=== PATIENT | male | born 1955 | race Caucasian/White ===

== ENCOUNTER → 2017-12-10 16:01 | Outpatient (CLI) | payer BC, SELFPAY ==
--- NOTE | 2017-12-10 16:04 | US_ITS ---
STUDY: SCROTUM ULTRASOUND REASON FOR EXAM: Male, 62 years old. Spermatocele. TECHNIQUE: Ultrasound evaluation of the scrotum was performed with color Doppler and static camacho-scale imaging. COMPARISON: None. FINDINGS: RIGHT TESTICLE INTRATESTICULAR: There is a normal size of the right testicle. The right testicle measures 4.4 x 4.2 x 2.5 cm. There is a homogenous echotexture. There is normal arterial and normal venous vascularity. There is no demonstrated right testicular mass or cyst. EXTRATESTICULAR: The epididymis is normal in size. The epididymis head measures 1.7 cm. There is normal vascularity of the epididymis. There is no demonstrated epididymal cystic structure. There is a small hydrocele. There is no demonstrated varicocele. There is no demonstrated extratesticular mass or cyst. LEFT TESTICLE INTRATESTICULAR: There is a normal size of the left testicle. The left testicle measures 4.5 x 3.9 x 2.4 cm. There is a homogenous echotexture. There is normal arterial and normal venous vascularity. There is no demonstrated left testicular mass or cyst. EXTRATESTICULAR: The epididymis is enlarged. The epididymis head measures 3.3 x 2.1 x 3.0 cm. There is normal vascularity of the epididymis. Several well-defined cystic structures are seen most likely large pneumatoceles as much as 2.1 cm. There is a large hydrocele with debris. There is no demonstrated varicocele. There is no demonstrated extratesticular mass or cyst. US/Testicular with Arterial Flow IMPRESSION: Normal bilateral testicles. No evidence for torsion. Enlarged epididymis. Several pneumatoceles as much as 2.1 cm. Large hydrocele with debris. Electronically Signed: Barry Torres MD at 9:56 EDT , Service support ,
== END ==
PROVIDERS: Family Provider Family Medicine; PCP Family Medicine; Visit Provider Urology
DX: N43.40 Spermatocele of epididymis, unspecified (principal)
CPT/HCPCS: 76870; 93976

== ENCOUNTER → 2018-01-01 16:45 | Outpatient (CLI) | payer BC, SELFPAY ==
--- NOTE | 2018-01-01 16:49 | CT_ITS ---
STUDY: CT ABDOMEN AND PELVIS WITHOUT CONTRAST REASON FOR EXAM: Male, 62 years old. Hematuria, right flank pain RADIATION DOSAGE (If Supplied By Facility): CTDIvol = ( 14.3 ) mGy, DLP = ( 712.18 ) mGycm TECHNIQUE: Transaxial images were obtained from the dome of the diaphragm to the symphysis pubis without oral contrast, and without intravenous contrast. Sagittal and coronal images were reconstructed. Individualized dose optimization techniques were used for this CT. COMPARISON: None. FINDINGS: The visualized lung bases are unremarkable. The visualized portions of the heart are within normal limits. Normal liver. The gallbladder is contracted. There is a small calcified stone in the gallbladder neck. Normal spleen. Normal pancreas. Normal bilateral adrenal glands. Normal right kidney. Normal left kidney. Normal visualized stomach. Normal small intestine. There is mild colonic diverticulosis with no associated diverticulitis. The appendix is not seen in accordance with history of appendectomy. There are calcified plaques of the abdominal aorta. Normal inferior vena cava. Normal retroperitoneum. Normal urinary bladder. Prostatic calcifications are present. The seminal vesicles and seminal vesicle angles appear normal. There is a small umbilical hernia containing fat. There appears to be a large left hydrocele. There is diffuse endplate spondylosis of the visualized thoracolumbar spine. CT/Abdomen/Pelvis without Cont IMPRESSION: 1. Calcified gallstones seen in the gallbladder neck. The gallbladder is contracted. 2. Mild colonic diverticulosis with no associated diverticulitis. 3. Small fat-containing umbilical hernia. 4. There appears to be a large left hydrocele. 5. There is no evidence of nephro or ureterolithiasis, hydronephrosis, or hydroureter. Electronically Signed: Seth Darden MD at 17:46 EDT , Service support ,
== END ==
PROVIDERS: Family Provider Family Medicine; PCP Family Medicine; Visit Provider Family Medicine
DX: M54.5 Low back pain (principal)
CPT/HCPCS: 74176

== ENCOUNTER → 2018-04-09 12:06 | Outpatient (CLI) | payer BC, SELFPAY | PROVIDERS: Family Provider Family Medicine; PCP Family Medicine; Visit Provider Nurse Practitioner Family | DX: R55 Syncope and collapse (principal); I48.2 Chronic atrial fibrillation | CPT/HCPCS: 93225; 93226 ==

== ENCOUNTER 2018-10-04 07:59 | Day surgery (SDC) | payer BC, SELFPAY ==
[2018-09-06 15:12] VITALS: BMI 26.9
[2018-10-03 07:27] VITALS: BMI 26.9
[2018-10-04 08:20] LABS: Hemoglobin 14.3 g/dl (13.0-16.5); Mean Corpuscular Hgb 29.5 pg (27.0-32.0); Mean Corpuscular Volume 86.6 fL (80-94); Mean Platelet Vol. 11.2 fl (6.2-12.0); Platelet Count 171 K/mm3 (150-450); RBC Distribution Width CV 13.2 % (11.6-14.6); RBC Distribution Width SD 40.8 fl (35.1-43.9); Red Blood Count 4.85 M/mm3 (4.6-6.2); White Blood Count 8.7 K/mm3 (4.4-11.0)
[2018-10-04 08:26] LABS: Prothrombin Time (Protime)PT. 13.2 SECONDS (11.7-14.9)
[2018-10-04 08:27] LABS: Anion Gap 6 (5-15); BUN 27 mg/dL (7-18); BUN/Creat Ratio 29.9 RATIO (10-20); Calcium,Total 8.6 mg/dL (8.5-10.1); Chloride 107 mmol/L (98-107); EST Glomerular Filtration Rate 90 mL/min (>60); Est Glom Filt Rate - Afr Amer 109 mL/min (>60); Estimated Creatinine Clearance 98.94 ml/min; Glucose 168 mg/dL (74-106); Partial Thromboplast Time 29.6 Seconds (24.1-36.2); Sodium Level 141 mmol/L (136-145)
[2018-10-04 08:43] LABS: Scan Indicated on CBC? Y/N NO
--- NOTE | 2018-10-04 10:41 | CL.D_ITS ---
Patient Name: TATYANA MCKENNA Study Date: 10/04/2018 Performing: Chris Hernandez MD Ht: 74.01 inches 188 cm : 1955 Wt: 209.44 lbs 95 kg Age: 62 Gender: male BSA: 2.22 PROCEDURE(S) PERFORMED PR43-HVR/COR/LV CLINICAL PROFILE AND INDICATIONS Indications: Cardiac Arrythmia Heart Failure: None Stress/Imaging Stress/Image Study Performed: No Angina Classification Anginal Classification w/in 2 Weeks: No symptoms CAD Presentations: No Sxs, no angina. CONCLUSIONS Normal Left Ventricular End Diastolic Pressure Normal LV size, wall motion,and systolic function LVEF: by LV gram 55 % Single vessel CAD of the RCA (mild luminal irregularities) RECOMMENDATIONS Risk factor modification Medical therapy DESCRIPTION OF PROCEDURE The patient arrived to the procedure lab. The risks and benefits of the procedure as well as a full d escription of our services here and current unavailability of surgical backup were fully explained to the patient and/or their significant other prior to the catheterization. The Timeout was completed, verifying the correct patient and procedure. The patient's procedural site was prepped and draped in the usual fashion. Local anesthetic was given subcutaneously to right groin region with Lidocaine 2%. Using a modified Seldinger technique, arterial access was obtained via the right femoral artery, a 4 Fr sheath was inserted Left Coronary Artery selective angiography was performed in multiple views us ing a 4 Fr. JL4 catheter. Right Coronary Artery selective angiography was then performed in multiple views using a 4 Fr. 3DRC catheter. Left Ventriculography was performed in HOFF projection using a 4 Fr . Pigtail catheter. LV to AO pullback pressures were then recorded.The arterial sheath was pulled and manual compression applied until hemostasis is achieved. CORONARY ANGIOGRAPHY DOMINANCE: Co- Dominant LEFT HEART ASSESSMENT Left Ventricular Ejection Fraction: by LV Gram 55 % Normal LV wall motion Normal Left Ventricular End Diastolic Pressure LVEDP: 13 mmHg LEFT MAIN: Angiographically normal LEFT ANTERIOR DECENDING ARTERY: Angiographically normal CIRCUMFLEX ARTERY: Angiographically normal RIGHT CORONARY ARTERY: MID RCA: Mild luminal irregularities VALVE FINDINGS: Normal Aortic Valve function Normal Mitral Valve function AORTIC ROOT: Angiographically normal COMPLICATIONS No Complications PROCEDURE MEDICATIONS Versed 1 mg IV Versed 1 mg IV Oxygen: 2 L/min via nasal cannula SUMMARY OF HEMODYNAMIC DATA Time AIR REST ECG 08:34:49 AO 184/91 (128) SA 10:07:07 LV 178/2, 13 10:13:24 LV 176/0, 13 10:13:30 LV 169/1, 18 10:14:37 LV 152/1, 12 10:14:44 LVp 178/0, 15 10:14:53 AOp 180/88 (129) 10:14:58 Signed By Chris Hernandez MD On 10/04/2018 10:40:43 Chris Hernandez MD
== END 2018-10-04 14:35 | disposition home or self-care (01) ==
LOC: CLSP 08:02
PROVIDERS: Nurse Practitioner Family; Family Provider Family Medicine; PCP Family Medicine; Referring Provider Internal Medicine Cardiovascular Disease; Visit Provider Internal Medicine Cardiovascular Disease
DX: I49.9 Cardiac arrhythmia, unspecified (principal); I48.0 Paroxysmal atrial fibrillation; I10 Essential (primary) hypertension; E78.5 Hyperlipidemia, unspecified; E11.9 Type 2 diabetes mellitus without complications; Z79.82 Long term (current) use of aspirin; Z79.84 Long term (current) use of oral hypoglycemic drugs; Z79.899 Other long term (current) drug therapy; E66.3 Overweight; Z68.26 Body mass index [BMI] 26.0-26.9, adult
CPT/HCPCS: 36415; 80048; 85027; 85610; 85730; 93458; 99152; 99153; J7040; Q9967; C1894

== ENCOUNTER 2019-06-25 07:02 | Emergency (ER) | payer BC, SELFPAY ==
[2019-01-24 16:01] VITALS: BMI 26.9
[2019-06-25 07:03] VITALS: BP 136/98; PULSE 66; RESP 25; TEMP 36.6; O2SAT 100; BMI 27.2
[2019-06-25 07:11] VITALS: BP 136/98; PULSE 66; RESP 25; TEMP 36.6; O2SAT 100
--- NOTE | 2019-06-25 07:35 | EKG12_ITS ---
Test Reason : GEN ILLNESS Blood Pressure : / mmHG Vent. Rate : 067 BPM Atrial Rate : 394 BPM P-R Int : 000 ms QRS Dur : 094 ms QT Int : 418 ms P-R-T Axes : 000 -15 040 degrees QTc Int : 441 ms Atrial fibrillation with premature ventricular or aberrantly conducted complexes Anteroseptal infarct (cited on or before 02-JAN-2017) Abnormal ECG Confirmed by MADHAVI NEELY, JAROCHO ([id number]), editor managing newspaper [employer] ([id number]) on 07/01/2019 10:31:14 AM Referred By: OZ Confirmed By:ALOK HENDRICKSON MD
--- NOTE | 2019-06-25 07:35 | RAD_ITS ---
STUDY: X-RAY CHEST REASON FOR EXAM: Male, 63 years old. Dizziness nausea and cough. TECHNIQUE: Single AP portable view of the chest. COMPARISON: Comparison is made with prior study dated March 06, 2017. FINDINGS: EKG electrodes are seen. The lungs are clear and expanded. There is no demonstrated pleural abnormality. There is mild cardiac enlargement. Normal mediastinum and opal. Normal visualized pulmonary arteries. There is atherosclerotic tortuosity of the aortic arch and descending thoracic aorta. There are diffuse degenerative changes of the visualized thoracic spine. Normal visualized ribs, clavicles, and shoulders. There is no demonstrated abnormality of the visualized soft tissue structures of the upper abdomen. RAD/Chest 1 View (Portable) IMPRESSION: Mild cardiomegaly. Electronically Signed: Armando Cope, at 8:30 EDT , Service support ,
--- NOTE | 2019-06-25 07:35 | CT_ITS ---
STUDY: CT BRAIN WITHOUT CONTRAST REASON FOR EXAM: Male, 63 years old. Dizziness. RADIATION DOSAGE (If Supplied By Facility): CTDIvol = ( 60.81 ) mGy, DLP = ( 1067.08 ) mGycm TECHNIQUE: Transaxial CT imaging of the brain was performed without administration of intravenous contrast material. Individualized dose optimization techniques were used for this CT. COMPARISON: Comparison is made with prior study dated March 06, 2017. FINDINGS: Normal soft tissue structures. Normal calvarium. There is mild cerebral atrophy with widening of the extra-axial spaces and ventricular dilatation. Normal white matter tracts of the cerebral hemispheres. Normal basal ganglia and thalami. Normal brainstem. Normal cerebellum. There is no intracranial hemorrhage. There are no findings of an acute ischemic infarction. Atherosclerotic calcification of the vertebral arteries and cavernous portions of the internal carotid arteries bilaterally. Normal visualized paranasal sinuses. CT/Brain/Head without Contrast IMPRESSION: Chronic involutional changes of the brain. Electronically Signed: Armando Cope, at 8:17 EDT , Service support ,
[2019-06-25 07:48] VITALS: BP 134/83; BP 144/97; BP 152/95; PULSE 62; PULSE 72
[2019-06-25 07:50] LABS: Absolute Lymphocyte Count 1.87 X10^3/uL (0.83-4.51); Absolute Neutrophil Count 6.9 X10^3/uL (2.0-7.7); Basophil# 0.06 X10^3/uL; Basophil% 0.6 % (0-1); Eosinophil# 0.27 X10^3/uL; Eosinophils% 2.8 % (0-5); Hematocrit 42.1 % (40-54); Hemoglobin 14.3 g/dL (13.0-16.5); Lymphocyte # 1.87 X10^3/ul (4.0); Lymphocyte % 19.1 % (19-41); Mean Corpuscular Hgb 29.4 pg (27.0-32.0); Mean Corpuscular Volume 86.4 fL (80-94); Mean Platelet Vol. 11.7 fl (6.2-12.0); Monocyte# 0.64 X10^3/uL; Monocyte% 6.5 % (0-10); NRBC Flagged by Analyzer 0 % (0-5); Neutrophil % 70.6 % (47-70); Platelet Count 160 K/mm3 (150-450); RBC Distribution Width CV 12.5 % (11.6-14.6); RBC Distribution Width SD 39.3 fl (35.1-43.9); Red Blood Count 4.87 M/mm3 (4.6-6.2); White Blood Count 9.8 K/mm3 (4.4-11.0)
[2019-06-25 08:03] LABS: Anion Gap 10 (5-15); BUN 27 mg/dL (7-18); BUN/Creat Ratio 29.7 RATIO (10-20); Calcium,Total 8.9 mg/dL (8.5-10.1); Chloride 106 mmol/L (98-107); Creatinine, Serum 0.91 mg/dL (0.70-1.30); EST Glomerular Filtration Rate 89 mL/min (>60); Est Glom Filt Rate - Afr Amer 108 mL/min (>60); Glucose 242 mg/dL (74-106); Potassium 3.8 mmol/L (3.5-5.1); Sodium Level 143 mmol/L (136-145)
[2019-06-25] MEDS: Meclizine HCl 25 MG Tablet PO (08:14)
[2019-06-25] MEDS: 0.9% Normal Saline 1,000 ML 150 ML IV (08:15)
--- NOTE | 2019-06-25 09:38 | ED.VISSUMM ---
- ER Visit Summary Date of Service: 06/25/19 Chief Complaint: [Dizzy] History of Present Illness: The patient is a 63 M [resents to the emergency department complaint feeling dizzy this morning after waking. Patient try to turn his alarm clock off when he awoke and felt that he was woozy and feeling off balance. Patient also felt sweaty and diaphoretic with it. Dizziness is worse with head movement and trying to stand and walk. He has had headaches off and on. Denies any falls or head injuries. Denies recent illness. Patient was nauseated this morning. Patient also described and non-described discomfort in his left lower chest off and on for weeks that he notices more when he is at rest. The discomfort is not exertional and typically does not feel he while he is working as patient does work as a project construction manager. He denies recent travel or surgery. Patient is currently on apixaban for history of A. fib. Patient tells me he had a heart catheterization in September that was normal.] Physical Examination: [HEENT-PERRLA, EOMI. Cranial nerves II through XII grossly intact. TMs clear. Mucous membranes moist. No adenopathy. Cardiovascular-regular rate and rhythm without murmur or ectopy Lungs-clear to auscultation, chest wall stable without crepitus or subcu emphysema Abdomen-normoactive bowel sounds, soft, nontender, no rebound or rigidity, no peritoneal signs. Neuro [id number] and heel valdez testing within normal limits, negative Romberg, negative pronator drift, fundi benign. Patient had Hallpike maneuver performed and he was symptomatic with lying flat and sitting back up. No nystagmus was noted. Extremities-intact ?4, normal range of motion, normal pulses, atraumatic] Test Results: [CT scan of the brain without contrast showed chronic involutional changes otherwise nothing acute. Chest x-ray showed mild cardiomegaly. EKG obtained arrival showed atrial fibrillation with an old anterior septal infarct noted. CBC with it was normal. Chemistries unremarkable. Troponin is less than 0.15. Orthostatic vital signs were negative.] Emergency Department Course and Treatment: [He was medicated with normal saline as well as Antivert. Patient had good symptom relief with the Antivert. Patient was able to ambulate in the department however he felt just slightly off balance still.] Treatment Plan: [At this point I suspect likely vertigo as the etiology of patient's symptoms. Patient will be given a prescription for Antivert and advised to follow-up with his primary care physician within next 3 to 5 days. Patient advised to return if persistent symptoms of dizziness or syncope.] Disposition: [Discharged home in stable condition.] Impression: [Vertigo-benign positional] This note was generated with [employer]en dictation software. It may contain incorrect words, spelling, and punctuation that were not noted in review of the chart prior to signing ED Disposition - Plan for ED Patient: Referrals: Toby Echeverria MD [Primary Care Provider] -
--- NOTE | 2019-06-25 09:42 | ED.DEP ---
ED Disposition - Plan for ED Patient: Instructions: Benign Positional Vertigo Prescriptions: Meclizine HCl [Antivert] 25 mg PO 4X/DAY PRN PRN #30 tab PRN Reason: Vertigo Prescription Printed Referrals: Toby Echeverria MD [Primary Care Provider] - 3-5 Days
[2019-06-25 09:54] VITALS: BP 153/98; PULSE 74; RESP 18; O2SAT 99
== END 2019-06-25 09:55 | disposition home or self-care (01) ==
LOC: ED 07:41
PROVIDERS: Emergency Provider Emergency Medicine; Family Provider Family Medicine; PCP Family Medicine
DX: H81.10 Benign paroxysmal vertigo, unspecified ear (principal); I48.91 Unspecified atrial fibrillation; E11.9 Type 2 diabetes mellitus without complications; I10 Essential (primary) hypertension; E78.00 Pure hypercholesterolemia, unspecified; Z79.02 Long term (current) use of antithrombotics/antiplatelets; Z79.899 Other long term (current) drug therapy
CPT/HCPCS: 70450; 71045; 80048; 84484; 85025; 93005; 96360; 96361; 99285; J7030; A4216

== ENCOUNTER → 2019-07-21 | Outpatient (CLI) | payer BC, SELFPAY ==
[2019-07-14 10:24] VITALS: BMI 27.3
--- NOTE | 2019-07-21 12:58 | CDU_ITS ---
Reason For Study: Vertigo Rt. Velocities/BP Lt. Velocities/BP Prox CCA 103.4/22.6 cm/sec. Prox CCA 83.9/24.9 cm/sec. Mid CCA 74.7/20 cm/sec. Mid CCA 75.3/20 cm/sec. Dist CCA 66.9/21.3 cm/sec. Dist CCA 71.6/24.9 cm/sec. Prox ICA 52.6/17.3 cm/sec. Prox ICA 54.2/16.8 cm/sec. Mid ICA 61.9/23.4 cm/sec. Mid ICA 60.8/25.6 cm/sec. Dist ICA 57.5/25.6 cm/sec. Dist ICA 78.4/35.5 cm/sec. Rt. ICA/CCA = 0.8. Lt. ICA/CCA = 1.0. Prox ECA 96.9/17.3 cm/sec. Prox ECA 88.8/20 cm/sec. Rt. Vert. 58.6/23.4 cm/sec. Lt. Vert. 49.1/19.5 cm/sec. Right Extracranial There is homogeneous, smooth atherosclerotic plaque noted in the right common carotid artery. There is heterogeneous, irregular atherosclerotic plaque noted in the right internal carotid artery. There is homogeneous, smooth atherosclerotic plaque noted in the right external carotid artery. Antegrade flow is noted in the right vertebral artery. Nonvascularized structure noted in the right thyroid tissue measuring approximently 0.8 x 0.95 x 1.26 cm. Left Extracranial There is homogeneous, smooth atherosclerotic plaque noted in the left common carotid artery. There is homogeneous, irregular atherosclerotic plaque noted in the left internal carotid artery. There is homogeneous, smooth atherosclerotic plaque noted in the left external carotid artery. Antegrade flow is noted in the left vertebral artery. Procedure Carotid Duplex 40356. Exam performed in department. Interpretation Summary Mild (<50%) stenosis right extracranial internal carotid. Mild (<50%) stenosis left extracranial internal carotid. Flow within the vertebral arteries is antegrade bilaterally. Ordering Physician: Lori Chappell Referring Physician: Toby Echeverria Performed By: Sheila Diaz RVT
== END | disposition home or self-care (01) ==
LOC: CVS 12:57
PROVIDERS: Family Provider Family Medicine; PCP Family Medicine; Referring Provider Physician Assistant Medical; Visit Provider Physician Assistant Medical
DX: I48.0 Paroxysmal atrial fibrillation (principal); R42 Dizziness and giddiness
CPT/HCPCS: 93225; 93226; 93880

== ENCOUNTER 2020-09-20 08:35 | Emergency (ER) | payer BC, SELFPAY ==
[2019-07-14 10:24] VITALS: BMI 27.3
[2020-09-20 08:36] VITALS: BP 157/85; PULSE 68; RESP 20; TEMP 36.6; O2SAT 98; BMI 26.2
--- NOTE | 2020-09-20 08:54 | ED.DCSUM_ITS ---
History of Present Illness Chief Complaint: Dizziness Informant: Patient Narrative: 64-year-old male presenting with intermittent headache/lightheadedness which is associated with mild chest pressure which radiates into his left shoulder. This has been going on for about 3 weeks. It is intermittent lasts for seconds. It occurs at rest in the morning and evening when he sitting in his chair. 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 Patient does have history of atrial fibrillation and is on Eliquis. He denies any head injury. He has not had syncope. He denies fever, chills, shortness of breath, cough. Patient states he is eating and drinking normally. Is making normal urine and stool. Other than these intermittent symptoms for 3 weeks he feels fine. - Past Medical History (1) Essential hypertension Status: Chronic (2) Hyperlipemia Status: Chronic Past Medical History - Allergies and Home Meds Allergies/Adverse Reactions: Allergies metformin Allergy (Verified 09/20/20 08:38) Other numbness Primary Care Physician: Toby Echeverria MD [Primary Care Provider] - Past Medical History: - - Atrial fibrillation. Medical history reviewed in problem list. Surgical History: appendectomy, - - Cystoscopy remotely due to hematuria Lives: Spouse/ Significant Other Smoking Status: Never smoker Alcohol: None Drugs: None - Family History Maternal Family History: Family History (Last Reviewed 07/14/19 @ 16:25 by Lori VILLALOBOS, PA) Father CAD (coronary artery disease) Myocardial infarction Mother CVA (cerebral vascular accident) CAD (coronary artery disease) Myocardial infarction Brother Afib Emphysema, unspecified Family History: Reports: Heart Disease, Stroke Paternal Family History: Family History (Last Reviewed 07/14/19 @ 16:25 by Lori VILLALOBOS, PA) Father CAD (coronary artery disease) Myocardial infarction Mother CVA (cerebral vascular accident) CAD (coronary artery disease) Myocardial infarction Brother Afib Emphysema, unspecified Family History: Reports: COPD Review of Systems General: Denies: Chills, Fever, Sweats Eyes: Denies: Visual changes - bilaterally, Diplopia ENT: Denies: Rhinorrhea, Sore throat Cardiovascular: Reports: Chest pain Respiratory: Denies: Dyspnea, Cough, Dyspnea on exertion Gastrointestinal: Denies: Abdominal pain, Nausea, Vomiting, Diarrhea, Melena, Hematochezia Genitourinary: Denies: Dysuria, Hematuria, Frequency Musculoskeletal: Denies: Back pain, Extremity Pain Skin: Denies: Rash, Wounds Neurological: Reports: Headache. Denies: Parasthesia, Numbness Psych: Reports: -, -. Denies: Depression, Anxiety, Suicidal thoughts, Suicidal ideations Physical Exam Vital Signs/Narrative: Vital Signs Temp Pulse Resp BP Pulse Ox 09/20/20 08:36 97.8 F 68 20 H 157/85 H 98 Inital Vital Signs reviewed: Yes General: Well nourished, No Acute Distress Head: Normocephalic, Atraumatic Eyes: Perrl, EOMI ENT: Moist mucous membranes, No rhinorrhea Cardiovascular: Regular rate, Regular rhythm Respiratory: No distress, CTA bilaterally Abdomen: Soft, Nontender, Nondistended Back: Nontender, Normal Inspection Extremities: Nontender, No edema Skin: Normal color, No rash Neurological: Alert, Oriented x3, Cranial nerves II-XII grossly intact Psychological: Normal affect, Normal Mood Diagnostic/Tx/Re-eval Clinical Impression(s) from Imaging Studies Brain CT 09/20/20 09:03 IMPRESSION: Normal unenhanced CT scan of the brain. Electronically Signed: Katerin Au, at 10:09 EST Tel , Service support , Chest X-Ray 09/20/20 09:20 IMPRESSION: Normal x-ray examination of the chest. Electronically Signed: Katerin uA at 10:04 EST Tel , Service support , Laboratory Data 09/20/20 09/20/20 09/20/20 08:40 08:40 11:58 WBC 11.1 H RBC 5.06 Hgb 15.5 Hct 44.5 MCV 87.9 MCH 30.6 MCHC 34.8 RDW Std Deviation 41.1 RDW Coeff of Kim 13.9 Plt Count 185 MPV 11.6 Immature Gran % (Auto) 0.600 Neut % (Auto) 65.9 Lymph % (Auto) 24.1 Garrett % (Auto) 7.5 Eos % (Auto) 1.4 Baso % (Auto) 0.5 Absolute Neuts (auto) 7.3 Absolute Lymphs (auto) 2.67 Nucleated RBC % 0 Sodium 137 Potassium 3.6 Chloride 104 Carbon Dioxide 29.0 Anion Gap 4 L BUN 24 H Creatinine 0.87 Estim Creat Clear Calc 99.73 Est GFR (MDRD) Af Amer 114 Est GFR (MDRD) Non-Af 94 BUN/Creatinine Ratio 27.6 H Glucose 197 H Calcium 9.1 Troponin I < 0.015 < 0.015 - EKG Initial EKG Interpretation: No Acute Injury Pattern, Atrial Fibrillation, - - 55 bpm Prior: Unchanged Follow-up EKG Interpretation: No Acute Injury Pattern, Atrial Fibrillation, - - 61 bpm Prior: Unchanged - Medical Decision Making 64-year-old male presenting with head pressure and chest pain which is intermittent and fleeting. His heart score is a 3. Patient had initial EKG interpreted by myself which showed atrial fibrillation with slow ventricular response. Troponin was negative. Patient is anticoagulated currently and I have low suspicion for pulmonary embolism. CT brain shows no acute process. Chest x-ray interpreted by myself and the radiologist shows no acute process. Lab work shows patient is slightly dehydrated and was given IV fluids. Delta troponin is also negative. Delta EKG is interpreted by myself shows a fibrillation at 61 bpm without ischemic changes. No significant interval changes from previous EKG. Given patient's negative work-up I feel the patient is safe to be discharged home at this time. Impression: 1. Chest pain 2. Lightheadedness ED Disposition - Plan for ED Patient: Disposition: Home or Assisted Living Instructions: ED Chest Pain, Uncertain Cause, ED Dizziness, Uncertain Cause Referrals: Toby Echeverria MD [Primary Care Provider] -
--- NOTE | 2020-09-20 08:54 | EKG12_ITS ---
Test Reason : REPEAT EKG Blood Pressure : / mmHG Vent. Rate : 061 BPM Atrial Rate : 061 BPM P-R Int : 000 ms QRS Dur : 090 ms QT Int : 436 ms P-R-T Axes : 000 -18 -04 degrees QTc Int : 438 ms Atrial fibrillation Anteroseptal infarct , age undetermined Abnormal ECG Confirmed by MADHAVI NEELY, JAROCHO ([id number]), film editor supervisor MARIEL BIGGS ([id number]) on 09/27/2020 9:10:31 AM Referred By: KAYLA Confirmed By:ALOK HENDRICKSON MD
[2020-09-20 09:00] LABS: Absolute Lymphocyte Count 2.67 X10^3/uL (0.83-4.51); Absolute Neutrophil Count 7.3 X10^3/uL (2.0-7.7); Basophil# 0.06 X10^3/uL; Basophil% 0.5 % (0-1); Eosinophil# 0.16 X10^3/uL; Eosinophils% 1.4 % (0-5); Hematocrit 44.5 % (40-54); Hemoglobin 15.5 g/dL (13.0-16.5); Lymphocyte # 2.67 X10^3/ul (4.0); Lymphocyte % 24.1 % (19-41); Mean Corp Hgb Conc 34.8 g/dL (32-36); Mean Corpuscular Hgb 30.6 pg (27.0-32.0); Mean Corpuscular Volume 87.9 fL (80-94); Mean Platelet Vol. 11.6 fl (6.2-12.0); Monocyte# 0.83 X10^3/uL; Monocyte% 7.5 % (0-10); NRBC Flagged by Analyzer 0 % (0-5); Neutrophil % 65.9 % (47-70); Platelet Count 185 K/mm3 (150-450); RBC Distribution Width CV 13.9 % (11.6-14.6); RBC Distribution Width SD 41.1 fl (35.1-43.9); Red Blood Count 5.06 M/mm3 (4.6-6.2); White Blood Count 11.1 K/mm3 (4.4-11.0)
--- NOTE | 2020-09-20 09:03 | CT_ITS ---
STUDY: CT BRAIN WITHOUT CONTRAST REASON FOR EXAM: Male, 64 years old. DIZZINESS, LIGHTHEADED RADIATION DOSAGE (If Supplied By Facility): CTDIvol = ( 44.99 ) mGy, DLP = ( 812.98 ) mGycm TECHNIQUE: Transaxial CT imaging of the brain was performed without administration of intravenous contrast material. Individualized dose optimization techniques were used for this CT. COMPARISON: No relevant priors. FINDINGS: Normal soft tissue structures. Normal calvarium. Normal size ventricles and extra-axial spaces for the patient''s age. Normal white matter tracts of the cerebral hemispheres. Normal basal ganglia and thalami. Normal brainstem. Normal cerebellum. There is no intracranial hemorrhage. There are no findings of an acute ischemic infarction. Normal visualized paranasal sinuses. CT/Brain/Head without Contrast IMPRESSION: Normal unenhanced CT scan of the brain. Electronically Signed: Katerin Au, at 10:09 EST Tel , Service support ,
[2020-09-20 09:17] VITALS: PULSE 67; RESP 20; O2SAT 100
--- NOTE | 2020-09-20 09:20 | RAD_ITS ---
STUDY: X-RAY CHEST REASON FOR EXAM: Male, 64 years old. dizziness,CP on and off 3 weeks TECHNIQUE: Single AP portable view of the chest. COMPARISON: None. FINDINGS: The lungs are clear and expanded. There is no demonstrated pleural abnormality. Normal size heart. Normal mediastinum and opal. Normal visualized pulmonary arteries. Normal visualized aortic arch and descending thoracic aorta. Normal visualized thoracic spine. Normal visualized ribs, clavicles, and shoulders. There is no demonstrated abnormality of the visualized soft tissue structures of the upper abdomen. RAD/Chest 1 View (Portable) IMPRESSION: Normal x-ray examination of the chest. Electronically Signed: Katerin Au, at 10:04 EST Tel , Service support ,
[2020-09-20 09:25] LABS: Anion Gap 4 (5-15); BUN 24 mg/dL (7-18); BUN/Creat Ratio 27.6 RATIO (10-20); Calcium,Total 9.1 mg/dL (8.5-10.1); Chloride 104 mmol/L (98-107); Creatinine, Serum 0.87 mg/dL (0.70-1.30); EST Glomerular Filtration Rate 94 mL/min (>60); Est Glom Filt Rate - Afr Amer 114 mL/min (>60); Estimated Creatinine Clearance 99.73 ml/min; Glucose 197 mg/dL (74-106); Potassium 3.6 mmol/L (3.5-5.1); Sodium Level 137 mmol/L (136-145)
[2020-09-20] MEDS: 0.9% Normal Saline 1,000 ML 999 ML IV (09:51)
[2020-09-20] MEDS: Aspirin 81 MG TAB.CHEW 324 MG PO (09:51)
[2020-09-20 10:50] VITALS: BP 156/98; PULSE 61; RESP 18; O2SAT 99
--- NOTE | 2020-09-20 11:40 | EKG12_ITS ---
Test Reason : CP Blood Pressure : / mmHG Vent. Rate : 055 BPM Atrial Rate : 394 BPM P-R Int : 000 ms QRS Dur : 090 ms QT Int : 420 ms P-R-T Axes : 000 -21 -03 degrees QTc Int : 401 ms Atrial fibrillation with slow ventricular response Inferior infarct , age undetermined Anteroseptal infarct , age undetermined Abnormal ECG Confirmed by MADHAVI NEELY, JAROCHO ([id number]), sound editor MARIEL BIGGS ([id number]) on 09/27/2020 9:10:48 AM Referred By: KAYLA Confirmed By:ALOK HENDRICKSON MD
[2020-09-20 13:11] VITALS: BP 179/92; PULSE 61; RESP 18; O2SAT 98
[2020-09-20 13:19] VITALS: PULSE 68; RESP 16; O2SAT 99
== END 2020-09-20 13:20 | disposition home or self-care (01) ==
PROVIDERS: Emergency Provider Student in an Organized Health Care Education/Training Program; PCP Family Medicine
DX: R07.9 Chest pain, unspecified (principal); R42 Dizziness and giddiness; I48.91 Unspecified atrial fibrillation; E78.5 Hyperlipidemia, unspecified; Z79.02 Long term (current) use of antithrombotics/antiplatelets
CPT/HCPCS: 70450; 71045; 80048; 84484; 85025; 93005; 99284; J7030; A4216

== ENCOUNTER → 2021-05-02 06:59 | Outpatient (CLI) | payer MEDICARE, BC, SELFPAY ==
[2020-12-19 12:45] VITALS: BMI 28.5
--- NOTE | 2021-05-02 07:15 | US_ITS ---
HISTORY: HEMATURIA. TECHNIQUE: Smith scale and color Doppler sagittal and transverse images were obtained of the kidneys. # of images incl. paperwork: 81. COMPARISON: CT 01/01/2018. FINDINGS: RIGHT KIDNEY: 12.6 cm in length. Cortical thickness 1.7 cm. Echogenicity within normal limits. No hydronephrosis. No gross renal mass demonstrated. LEFT KIDNEY: 11.9 cm in length. Cortical thickness 2.3 cm. Echogenicity within normal limits. No hydronephrosis. No gross renal mass demonstrated. URINARY BLADDER: Partially distended at 266 cc with a wall thickness of 4 mm, within normal limits. Bilateral ureteral jets visualized. PROSTATE GLAND: 3.8 x 4 x 3.3 cm for a volume of 26 cc. US/Kidney and Bladder IMPRESSION: Unremarkable examination of the kidneys. at 1424 Reported and signed by: Kaity Uriarte MD Electronically Signed: Kaity Uriarte MD at 14:23 EDT Tel , Service support ,
== END ==
PROVIDERS: PCP Family Medicine; Referring Provider Family Medicine; Visit Provider Family Medicine
DX: M54.6 Pain in thoracic spine (principal); R82.998 Other abnormal findings in urine; R31.1 Benign essential microscopic hematuria
CPT/HCPCS: 76770

== ENCOUNTER 2022-11-13 10:53 | Emergency (ER) | payer MEDICARE, BC, SELFPAY ==
[2022-11-13 10:54] VITALS: BP 182/107; PULSE 102; RESP 14; TEMP 35.2; O2SAT 98; BMI 27.4
--- NOTE | 2022-11-13 11:21 | RAD_ITS ---
STUDY: X-RAY CHEST REASON FOR EXAM: Male, 66 years old. Chest pain TECHNIQUE: PA and lateral views of the chest. COMPARISON: 09/20/2020 FINDINGS: The lungs are clear and expanded. There is no demonstrated pleural abnormality. Normal size heart. Normal mediastinum and opal. Normal visualized pulmonary arteries. Normal visualized aortic arch and descending thoracic aorta. Normal visualized thoracic spine. Normal visualized ribs, clavicles, and shoulders. There is no demonstrated abnormality of the visualized soft tissue structures of the upper abdomen. RAD/Chest PA and Lateral IMPRESSION: Normal x-ray examination of the chest. Electronically Signed: Darien David MD at 12:50 EST ,
--- NOTE | 2022-11-13 11:30 | EKG12_ITS ---
Test Reason : Blood Pressure : / mmHG Vent. Rate : 059 BPM Atrial Rate : 000 BPM P-R Int : 000 ms QRS Dur : 098 ms QT Int : 414 ms P-R-T Axes : 000 -25 008 degrees QTc Int : 409 ms Atrial fibrillation with slow ventricular response Anteroseptal infarct , age undetermined Abnormal ECG Confirmed by ABDIRIZAK NEELY, CHANELL ([id number]), clinical editor MARIEL BIGGS ([id number]) on 11/14/2022 11:26:19 AM Referred By: EKATERINA Confirmed By:CHANELL REVELES MD
[2022-11-13 11:41] LABS: Absolute Lymphocyte Count 2.23 X10^3/uL (0.83-4.51); Absolute Neutrophil Count 7.3 X10^3/uL (2.0-7.7); Basophil# 0.04 X10^3/uL; Basophil% 0.4 % (0-1); Eosinophil# 0.21 X10^3/uL; Hematocrit 44.6 % (40-54); Hemoglobin 14.6 g/dL (13.0-16.5); Lymphocyte # 2.23 X10^3/ul (0.83-4.51); Lymphocyte % 21.1 % (19-41); Mean Corp Hgb Conc 32.7 g/dL (32-36); Mean Corpuscular Hgb 28.8 pg (27.0-32.0); Mean Platelet Vol. 11.2 fl (6.2-12.0); Monocyte# 0.79 X10^3/uL; Monocyte% 7.5 % (0-10); NRBC Flagged by Analyzer 0 % (0-5); Neutrophil # 7.28 X10^3/uL (2.7-7.7); Neutrophil % 68.6 % (47-70); Platelet Count 189 K/mm3 (150-450); RBC Distribution Width CV 13.1 % (11.6-14.6); RBC Distribution Width SD 41.8 fl (35.1-43.9); Red Blood Count 5.07 M/mm3 (4.6-6.2); White Blood Count 10.6 K/mm3 (4.4-11.0)
[2022-11-13 11:59] LABS: Anion Gap 5 (5-15); BUN 18 mg/dL (7-18); BUN/Creat Ratio 19.3 RATIO (10-20); Calcium,Total 9.4 mg/dL (8.5-10.1); Chloride 104 mmol/L (98-107); Creatinine, Serum 0.93 mg/dL (0.70-1.30); EST Glomerular Filtration Rate 86 mL/min (>60); Est Glom Filt Rate - Afr Amer 104 mL/min (>60); Estimated Creatinine Clearance 90.84 ml/min; Glucose 207 mg/dL (74-106); Sodium Level 140 mmol/L (136-145); Troponin-I HS (w/2H Reflex) 6 pg/mL (3.0-78.0)
[2022-11-13 12:41] VITALS: BP 159/97; PULSE 62; RESP 18; O2SAT 97
[2022-11-13 13:00] VITALS: BP 148/83; PULSE 71
[2022-11-13 13:40] LABS: Reflex Troponin-HS? (from REC) Y
[2022-11-13 14:03] VITALS: BP 146/78; PULSE 71
[2022-11-13 14:07] LABS: Troponin-I HS 6 pg/mL (3.0-78.0)
--- NOTE | 2022-11-13 14:36 | EDS_ITS ---
HPI History of Present Illness Chief Complaint: Chest Pain Detail of Chief Complaint: Chest pain on Sunday, Sunday, Sunday and today Informant: patient and spouse/S.O. Onset/Context/Timing Onset: Days Activity at onset: sudden Timing: Intermittent Quality: Positive for Aching and Dull Location: - (Central to left side of the chest) Current Severity: Gone Maximum Severity: Severe Worsened By: Nothing Relieved By: Nothing Associated Symptoms: Positive for - (The 2 episodes today radiated to the left scapula near the angle.); Negative for Nausea, Vomiting, Diaphoresis, Dyspnea, Cough, Fever, Lightheadedness, Acid Reflux or Palpitations Narrative Narrative: Patient is a 66-year-old male with history of type 2 diabetes, pure hypercholesterolemia and essential hypertension who presents with central to left-sided chest pain that started at work on Sunday and lasted for hours. There is no radiation or associated symptoms. He had several episodes on Sunday that lasted for hours. There was no associated symptoms or radiation. He had 2 episodes on Sunday that lasted approximately 30 to 60 minutes. There is no associated symptoms or radiation. Today he had 2 episodes first at 8:00 that lasted an hour and the second 1 hour prior to presentation. He states when he arrived to the [facility] for rehabilitation part with his the pain had resolved. There was radiation but no associated symptoms. The pain is not positional. It is not related to exertion. It is not related to food. He does have history of hiatal hernia/GERD. He states normally when he has discomfort from this it is in the epigastric area. He denies history of VTE. He denies leg pain, swelling or discoloration. He is on anticoagulant for persistent atrial fibrillation. He denies black or maroon-colored stool. He denies vomiting or diarrhea. There is no history of trauma. 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 Prior Similar Symptoms: No Recent Illness/Hospitalization: No CVD Risk Factors: Positive for Hypertension, Diabetes and Hypercholesterolemia; Negative for Family History 1' </=55 PE Risk Factors: Negative for Recent Travel/Surgery, Recent Immobilization, Prior DVT or PE, Cancer or OCP + Smoking + >/=35 TAD Risk Factors: Positive for Hypertension; Negative for Marfan's Syndrome or Family History [facility] Medical History Arthritis Atrial fibrillation Creatinine elevation Diabetes mellitus Dyspnea Encounter for long-term current use of high risk medication Essential hypertension Fatigue HTN (hypertension) Hypokalemia Knee pain halfway use of drug Paroxysmal atrial fibrillation Persistent atrial fibrillation Pure hypercholesterolemia Renal insufficiency Severe headache T2DM (type 2 diabetes mellitus) Type 2 diabetes mellitus Home Medications sitagliptin phosphate 100 mg tablet 100 mg PO DAILY 11/08/15 [History Last Taken 11/08/15] cholecalciferol (vitamin D3) 50 mcg (2,000 unit) tablet 2,000 unit PO QDAY 01/11/18 [History Last Taken Unknown] cyanocobalamin (vitamin B-12) 500 mcg tablet 500 mcg PO QDAY 01/11/18 [History Last Taken Unknown] pioglitazone 45 mg tablet 45 mg PO QDAY 04/09/18 [History Last Taken Unknown] atorvastatin 80 mg tablet 80 mg PO QHS #90 tabs 09/06/18 [Rx Last Taken Unknown] metoprolol tartrate 25 mg tablet 12.5 mg PO BID 09/21/20 [History Last Taken Unknown] apixaban 5 mg tablet (Eliquis) 5 mg PO BID #60 tabs 05/02/21 [Rx Last Taken Unknown] valsartan 320 mg-hydrochlorothiazide 25 mg tablet 1 tab PO QDAY #90 tabs 09/20/22 [Rx Last Taken Unknown] Allergy/AdvReac Type Severity Reaction Status Date / Time glimepiride Allergy Nausea Verified 11/13/22 10:54 metformin Allergy Other Verified 11/13/22 10:54 Family History Father CAD (coronary artery disease) Myocardial infarction Mother CVA (cerebral vascular accident) CAD (coronary artery disease) Myocardial infarction Brother Afib Emphysema, unspecified Other Hypertension Surgical History H/O cystoscopy History of appendectomy Social History (Updated 11/13/22 @ 14:[address] Cem Martinez MD) household members: spouse Smoking Status: Never smoker alcohol intake: never substance use type: does not use diet: diabetic caffeine: Yes Type: carbonated beverages Number of servings: 2 and coffee Number of servings: 3 what type of physical activity do you participate in: walking seatbelt use: sometimes do you feel safe at home: Yes ROS ROS ED Constitutional Constitutional ED: Denies chills, fever(s), subjective, sweats or weight loss Eyes Eyes: Reports none ENT ENT ED: Denies ear pain, rhinorrhea or sore throat Cardiovascular Cardiovascular: Reports as per HPI; Denies orthopnea or paroxysmal nocturnal dyspnea Respiratory/Chest Respiratory/Chest: Denies cough, dyspnea, dyspnea on exertion, orthopnea or paroxysmal nocturnal dyspnea Gastrointestinal Gastrointestinal: Denies abdominal pain, diarrhea, nausea or vomiting Genitourinary Genitourinary ED: Denies dysuria, hematuria or urinary frequency Musculoskeletal Musculoskeletal: Reports back pain; Denies arthralgias, myalgias or neck pain Integumentary Denies rash Neurologic Neurologic: Denies paresthesias or weakness Endocrine Endocrinology: Denies cold intolerance or heat intolerance Hematologic/Lymphatic Hematologic/Lymphatic: Denies easy bleeding or easy bruising EXAM Physical Exam Const Vital Signs: 11/13/22 10:54 11/13/22 12:08 11/13/22 12:41 Temperature 95.4 F L Temperature Source Temporal Pulse Rate 102 H 62 Respiratory Rate 14 18 Respiratory Effort Normal Non-Labored Blood Pressure 182/107 H 159/97 H Blood Pressure Mean 132 117 Pulse Ox 98 97 Oxygen Delivery Method Room Air Room Air 11/13/22 12:41 11/13/22 13:00 11/13/22 14:03 Temperature Temperature Source Pulse Rate 71 71 Respiratory Rate Respiratory Effort Blood Pressure 148/83 H 146/78 H Blood Pressure Mean 104 100 Pulse Ox Oxygen Delivery Method Room Air Positive well nourished and well developed General Appearance ED: well developed; Negative for NAD or pallor HEENT Reports TM's clear and moist mucous membranes normocephalic and atraumatic Tympanic Membrane ED: Yes TM's clear Eyes PERRL and EOMs intact bilaterally General Eye ED: Negative for pale conjunctiva or scleral icterus Neck no lymphadenopathy, supple and no JVD Chest Wall inspection of chest normal and palpation of chest normal Resp normal respiratory effort and clear to auscultation bilaterally Cardio regular rate, regular rhythm, S1 normal heart sound, S2 normal heart sound and no murmurs Peripheral Pulses: pulses 2+ throughout GI normal to inspection, nondistended, normoactive bowel sounds, soft to palpation, non-tender, non-distended and no masses; Negative for hepatosplenomegaly Back/Spine no CVA tenderness and no thoracic nor lumbar tenderness Back/Spine Narrative: Inspection of the back is normal. Extremity normal to inspection Extremity Narrative: There is no asymmetry, swelling, discoloration, leg vein distention, palpable cords or tenderness along the distribution of the deep venous system. Neuro oriented x3, CN's II-XII intact bilaterally and no sensory deficits noted Sensorium / Orientation: awake and alert Motor Exam: strength 5/5 throughout Psych mental status grossly normal Skin no rashes or lesions noted and no wounds General Skin Exam: Negative for jaundice or pallor Heart Score History: Slightly/Non-Suspicious ECG: Normal Age: >/= 65 years Risk Factors: >/= 3 Risk Factors or History of CAD Troponin: </= Normal Limit Score: 4 MDM MDM MDM Narrative Medical decision making narrative: Differential diagnosis would include cardiac versus noncardiac chest pain. Noncardiac would include GI etiology doubt biliary with no intolerance to food versus musculoskeletal. Will obtain EKG to evaluate for any ischemic changes. Troponin and delta 2-hour troponin. CBC to assess for anemia chest x-ray is obtained to determine if there is evidence of large hiatal hernia, pneumonia, CHF or effusion. BMP to assess renal function and glucose since he has done Lab Data Attestation: I reviewed the patient's lab results. Lab results narrative: CBC is unremarkable. Basic metabolic panel is remarked for glucose of 207 with normal CO2 and anion gap. Troponin #1 is 6 and troponin #2 was 6 with a delta of 0. Since both are less than 7 based on high-sensitivity troponin algorithm cardiac etiology has been ruled out. Patient's been made aware of this. Labs: Laboratory Results - last 24 hr 11/13/22 11/13/22 11/13/22 11:30 11:30 13:45 WBC 10.6 RBC 5.07 Hgb 14.6 Hct 44.6 MCV 88.0 MCH 28.8 MCHC 32.7 RDW Std Deviation 41.8 RDW Coeff of Kim 13.1 Plt Count 189 MPV 11.2 Immature Gran % (Auto) 0.400 Neut % (Auto) 68.6 Lymph % (Auto) 21.1 [place] % (Auto) 7.5 Eos % (Auto) 2.0 Baso % (Auto) 0.4 Absolute Neuts (auto) 7.3 Absolute Lymphs (auto) 2.23 Nucleated RBC % 0 Sodium 140 Potassium 4.0 Chloride 104 Carbon Dioxide 31.0 Anion Gap 5 BUN 18 Creatinine 0.93 Estim Creat Clear Calc 90.84 Est GFR (MDRD) Af Amer 104 Est GFR (MDRD) Non-Af 86 BUN/Creatinine Ratio 19.3 Glucose 207 H Calcium 9.4 Troponin I High Sens 6 6 Radiography Chest X-Ray - ED: 2 View and Read by ED Physician (There is no evidence of heart failure, infiltrate or effusion. Cardiac silhouette and size normal. Perihilar region normal. Osseous structures are normal.) Diagnostic Testing: Clinical Impression(s) from Imaging Studies Chest X-Ray 11/13/22 11:21 IMPRESSION: Normal x-ray examination of the chest. Electronically Signed: Darien David MD at 12:50 EST Reading Location ID and State: [facility] / [place] , Service support , EKG Initial EKG: Attestation: I personally reviewed and interpreted this EKG as follows: Interpretation: Atrial Fibrillation (Rate is 59. QRS duration 98 ms. QT duration 414 ms. [place] is normal. There is decreased anterior forces noted.) Prior: Unchanged Treatment and Re-Evaluation Narrative: With normal EKG other than A-fib, 2 normal troponins less than 7 patient was informed this is not cardiac. He was discharged home to follow-up with his doctor. This may be related to his reflux/hiatal hernia. Discharge Plan Triage Chief Complaint: Chest Pain ED Provider: Cem Martinez Dx/Rx/DC Orders Clinical Impression: Intermittent left-sided chest pain, Essential hypertension, Pure hypercholesterolemia, Persistent atrial fibrillation, Type 2 diabetes mellitus with hyperglycemia Instructions: ED Chest Pain, Noncardiac, ED Chest Pain, Uncertain Cause Prescriptions: No Action cholecalciferol (vitamin D3) 2,000 unit tablet 2,000 unit tablet 2,000 unit PO QDAY cyanocobalamin (vitamin B-12) 500 mcg tablet 500 mcg PO QDAY pioglitazone 45 mg tablet 45 mg PO QDAY atorvastatin 80 mg tablet 80 mg PO QHS Qty: 90 3RF metoprolol tartrate 25 mg tablet 12.5 mg PO BID sitagliptin phosphate 100 MG tablet 100 mg PO DAILY Label Comments: Diabetes Eliquis 5 mg tablet 5 mg PO BID Qty: 60 11RF valsartan-hydrochlorothiazide 320-25 mg tablet 1 tab PO QDAY Qty: 90 3RF Primary Care Provider: Toby Echeverria Referrals: Toby Echeverria MD [Primary Care Provider] - 5-7 Days Disposition Disposition: Home, Self Care
[2022-11-13 15:02] VITALS: BP 134/80; PULSE 61
== END 2022-11-13 15:02 | disposition home or self-care (01) ==
PROVIDERS: Emergency Provider Emergency Medicine; PCP Family Medicine; Visit Provider Emergency Medicine
DX: R07.9 Chest pain, unspecified (principal); E11.65 Type 2 diabetes mellitus with hyperglycemia; I48.19 Other persistent atrial fibrillation; I10 Essential (primary) hypertension; E78.00 Pure hypercholesterolemia, unspecified
CPT/HCPCS: 71046; 80048; 84484; 85025; 93005; 99284; A4216

== ENCOUNTER → 2022-11-28 | Outpatient (CLI) | payer MEDICARE, BC, SELFPAY ==
--- NOTE | 2022-11-28 09:28 | STRESSREP_ITS ---
Stress Test Report Date: 11-28-2022 Procedure: Exercise tolerance test/imaging study Indications: Chest pain; paroxysmal atrial fibrillation; abnormal ECG Consent: Per the patient Procedure: The patient exercised on a Harpreet protocol for 4 minutes completing Stage I and 1 minute of Stage II achieving a peak heart rate of 190 bpm (124% predicted maximal heart rate) with resting blood pressure of 120/80 mmHg and a peak blood pressure 174/70 mmHg and a peak MET capacity of 7 METs. The baseline ECG demonstrated atrial fibrillation; poor R wave progression; a nterior my of indeterminate age cannot be excluded. The peak exercise ECG demonstrated continued atrial fibrillation with rapid ventricular response with diffuse nonspecific ST segment abnormality with notation of approximately [address] segment depression in leads II, III, aVF, and V6 with subsequent resolution towards baseline in recovery. There was an occasional PVC pretest and during exercise and an isolated ventricular quadruplet in early recovery. The functional capacity was considered decreased. There was no complaint of chest discomfort during exercise or recovery. The examination was discontinued secondary to dyspnea. Impression: 1. Technically adequate (percent predicted maximal heart rate greater than 85%) exercise tolerance test 2. Peak exercise ECG with atrial fibrillation with rapid ventricular response with diffuse nonspecific ST segment abnormality with notation of approximately [address] segment depression in leads II, III, aVF, and V6 with subsequent resolution towards baseline in recovery 3. There was an occasional PVC pretest and during exercise and an isolated ventricular quadruplet in early recovery 4. Nuclear images pending Myocardial perfusion imaging study: Technique: The patient was injected with 11.0 mCi of technetium 99m Cardiolite and subsequently rest SPECT Cardiolite nuclear imaging was obtained in the horiz ontal long, vertical long, and short axis views. The patient exercised on a Harpreet protocol for 4 minutes completing Stage I and 1 minute of Stage II achieving a peak heart rate of 190 bpm (124% predicted maximal heart rate) with resting blood pressure of 120/80 mmHg and a peak blood pressure 174/70 mmHg and a peak MET capacity of 7 METs. The patient was injected with 36.0 mCi of technetium 99m Cardiolite and subsequently stress SPECT Cardiolite nuclear imaging was obtained in the horizontal long, vertical long, and short axis views. A gated Cardiolite study at peak stress was obtained. Interpretation: Rest and stress SPECT Cardiolite nuclear imaging status post realignment, normalization, and attenuation correction, demonstrates the appearance of relative uniform tracer uptake and myocardial perfusion appearing within normal limits. There is end systolic thickening and brightening. The gated Cardiolite study demonstrates myocardial thickening and inward wall motion. The reported LVEF is 67%. Impression: 1. Rest and stress SPECT Cardiolite nuclear imaging demonstrate relative uniform tracer uptake and myocardial perfusion appearing within normal limits. 2. The gated Cardiolite study reports an LVEF of 67%. This note was generated with [employer] software. It may contain incorrect words, spelling, and punctuation that were not noted in checking the note before signing.
== END | disposition home or self-care (01) ==
PROVIDERS: PCP Family Medicine; Visit Provider Internal Medicine Cardiovascular Disease
DX: R07.9 Chest pain, unspecified (principal); I48.19 Other persistent atrial fibrillation; E11.9 Type 2 diabetes mellitus without complications; R94.31 Abnormal electrocardiogram [ECG] [EKG]; R06.02 Shortness of breath; I10 Essential (primary) hypertension; E78.00 Pure hypercholesterolemia, unspecified; N28.9 Disorder of kidney and ureter, unspecified
CPT/HCPCS: 78452; 93017; A9500; A4216

== ENCOUNTER → 2022-11-30 | Outpatient (CLI) | payer MEDICARE, BC, SELFPAY ==
[2022-11-30 12:24] LABS: BNP,B-Type NATRIURETIC PEPTIDE 114.5 pg/mL (0-100)
[2022-11-30 12:47] LABS: BUN 19 mg/dL (7-18); Creatinine, Serum 0.96 mg/dL (0.70-1.30); Glucose 204 mg/dL (74-106)
[2022-11-30 12:48] LABS: Anion Gap 5 (5-15); BUN/Creat Ratio 19.9 RATIO (10-20); Calcium,Total 9.6 mg/dL (8.5-10.1); Chloride 102 mmol/L (98-107); EST Glomerular Filtration Rate 83 mL/min (>60); Est Glom Filt Rate - Afr Amer 101 mL/min (>60); Sodium Level 137 mmol/L (136-145)
== END | disposition home or self-care (01) ==
LOC: LAB 11:36
PROVIDERS: PCP Family Medicine; Referring Provider Nurse Practitioner Gerontology; Visit Provider Nurse Practitioner Gerontology
DX: R06.02 Shortness of breath (principal)
CPT/HCPCS: 36415; 80048; 83880

== ENCOUNTER → 2022-12-11 | Outpatient (CLI) | payer MEDICARE, BC, SELFPAY ==
--- NOTE | 2022-12-11 08:58 | ECHOD_ITS ---
Reason For Study: AFIB Procedure This was a 2D Doppler, Color Flow transthoracic echocardiogram. Exam performed in department. Left Ventricle Normal LV size. Mild concentric left ventricular hypertrophy. Left ventricular systolic function is normal. The estimated ejection fraction is 55 %. No regional wall motion abnormalities noted. Right Ventricle Normal RV size. Normal systolic function. Atria The left atrium is moderately enlarged. The right atrium is moderately enlarged. Mitral Valve Normal mitral valve. Tricuspid Valve Normal tricuspid valve. Mild tricuspid valve insufficiency. Pulmonary artery systolic pressure is 35 mmHg. Pulmonic Valve Normal pulmonic valve. Great Vessels Normal aortic root. The pulmonary artery is normal size. Normal inferior vena cava. Pericardium/Pleural No pericardial effusion. MMode/2D Measurements & Calculations LVIDd: 4.4 cm IVSd: 1.2 cm Ao root diam: 3.5 cm LVIDs: 2.4 cm LVPWd: 1.2 cm FS: 45.2 % LAV(MOD-bp): 123.9 ml LVAd ap4: 29.1 cm2 SV(MOD-sp4): 55.4 ml LAV(MOD-bp) Indexed: 55.9 ml/m2 LVLd ap4: 7.5 cm LAV(MOD-sp2): 127.7 ml EDV(MOD-sp4): 95.6 ml LAV(MOD-sp4): 119.1 ml EDV(sp4-el): 95.9 ml LVAs ap4: 17.4 cm2 LVLs ap4: 6.8 cm ESV(MOD-sp4): 40.2 ml ESV(sp4-el): 38.0 ml EF(MOD-sp4): 58.0 % EF(sp4-el): 60.4 % SV(sp4-el): 57.9 ml LA dimension(2D): 4.9 cm LA A4 area: 31.0 cm2 RA A4 area: 29.6 cm2 Doppler Measurements & Calculations MV E max yadira: 136.8 cm/sec MV V2 max: 140.9 cm/sec Ao V2 max: 95.6 cm/sec MV max P.0 mmHg Ao max P.7 mmHg MV V2 mean: 55.5 cm/sec Ao V2 mean: 68.1 cm/sec MV mean P.9 mmHg Ao mean P.1 mmHg MV V2 VTI: 37.2 cm Ao V2 VTI: 26.0 cm AV (velocity ratio): 0.75 LV V1 max: 75.3 cm/sec MR max yadira: 530.5 cm/sec PA V2 max: 69.8 cm/sec LV V1 max P.3 mmHg MR max P.6 mmHg PA V2 mean: 53.2 cm/sec LV V1 mean P.2 mmHg LV V1 mean: 50.9 cm/sec LV V1 VTI: 19.6 cm TR max yadira: 283.1 cm/sec TR max P.1 mmHg ECHO/Echo Complete Interpretation Summary Normal LV size. Mild concentric left ventricular hypertrophy. Left ventricular systolic function is normal. The estimated ejection fraction is 55 %. The left atrium is moderately enlarged. The right atrium is moderately enlarged. Mild tricuspid valve insufficiency. Ordering Physician: Myah Caballero Referring Physician: Myah Caballero Performed By: Ana Gaffney RCS
== END | disposition home or self-care (01) ==
LOC: CVS 08:56
PROVIDERS: PCP Family Medicine; Referring Provider Nurse Practitioner Gerontology; Visit Provider Nurse Practitioner Gerontology
DX: I48.19 Other persistent atrial fibrillation (principal)
CPT/HCPCS: 93306

== ENCOUNTER → 2023-08-14 | Outpatient (CLI) | payer MEDICARE, BC, SELFPAY ==
[2023-08-14 11:06] LABS: Hematocrit 43.6 % (40-54); Hemoglobin 14.7 g/dL (13.0-16.5); Mean Corp Hgb Conc 33.7 g/dL (32-36); Mean Corpuscular Hgb 29.8 pg (27.0-32.0); Mean Corpuscular Volume 88.3 fL (80-94); Mean Platelet Vol. 11.1 fl (6.2-12.0); Platelet Count 196 K/mm3 (150-450); RBC Distribution Width CV 13.2 % (11.6-14.6); RBC Distribution Width SD 42.5 fl (35.1-43.9); Red Blood Count 4.94 M/mm3 (4.6-6.2); White Blood Count 10.9 K/mm3 (4.4-11.0)
[2023-08-14 11:19] LABS: BNP,B-Type NATRIURETIC PEPTIDE 168.6 pg/mL (0-100)
[2023-08-14 11:30] LABS: Anion Gap 5 (5-15); BUN 24 mg/dL (7-18); BUN/Creat Ratio 23.3 RATIO (10-20); Calcium,Total 9.3 mg/dL (8.5-10.1); Chloride 105 mmol/L (98-107); Creatinine, Serum 1.03 mg/dL (0.70-1.30); EST Glomerular Filtration Rate 76 mL/min (>60); Est Glom Filt Rate - Afr Amer 92 mL/min (>60); Glucose 151 mg/dL (74-106); Potassium 3.5 mmol/L (3.5-5.1); Sodium Level 139 mmol/L (136-145); Thyroid Stim Hormone (TSH) 2.59 uIU/mL (0.358-3.74)
== END | disposition home or self-care (01) ==
LOC: LAB 10:40
PROVIDERS: PCP Family Medicine; Referring Provider Nurse Practitioner Gerontology; Visit Provider Nurse Practitioner Gerontology
DX: R06.02 Shortness of breath (principal); I48.19 Other persistent atrial fibrillation; R53.83 Other fatigue; R42 Dizziness and giddiness; R45.0 Nervousness
CPT/HCPCS: 36415; 80048; 83880; 84443; 85027

== ENCOUNTER 2024-04-15 13:14 | Emergency (ER) | payer MEDICARE, BC, SELFPAY ==
[2024-04-15 13:15] VITALS: BP 139/87; PULSE 78; RESP 18; TEMP 36.6; O2SAT 99; BMI 25.9
--- NOTE | 2024-04-15 13:51 | EKG12_ITS ---
Test Reason : CP Blood Pressure : / mmHG Vent. Rate : 071 BPM Atrial Rate : 000 BPM P-R Int : 000 ms QRS Dur : 094 ms QT Int : 396 ms P-R-T Axes : 000 -21 -09 degrees QTc Int : 430 ms Atrial fibrillation Anteroseptal infarct (cited on or before 02-JAN-2017) Abnormal ECG Confirmed by KRISTI NEELY, VALERIANO ([id number]), associate editor TOIR YORK ([id number]) on 04/16/2024 10:19:42 AM Referred By: Confirmed By:VALERIANO BERRY MD
--- NOTE | 2024-04-15 13:51 | CT_ITS ---
STUDY: CTA HEAD AND NECK WITH CONTRAST REASON FOR EXAM: Male, 68 years old. Dizziness and headaches on blood thinner RADIATION DOSAGE (If Supplied By Facility): CTDIvol = ( 26.21 ) mGy, DLP = ( 1684.64 ) mGycm TECHNIQUE: CT angiography was performed with a multi-detector CT scanner. Data acquisition was obtained from the skull base through the vertex following intravenous administration of IV 100mL Isovue-370. MIP images were reconstructed from the axial data set. Post-processing of the angiographic images was performed, with multiplanar reformation and 3D reconstruction. Individualized dose optimization techniques were used for this CT. COMPARISON: No relevant priors. FINDINGS: Normal bilateral petrous carotid arteries. There is calcified plaque formation of the right cavernous carotid artery, without a cross-sectional luminal stenosis. There is calcified plaque formation of the left cavernous carotid artery, with a mild stenosis (less than 50%). Normal right A1 segments of the anterior cerebral artery. Normal left A1 segments of the anterior cerebral artery. Normal intact anterior communicating artery (ACOM). Normal bilateral A2 segments of the anterior cerebral arteries. Normal right M1 and M2 segments of the middle cerebral arteries, with a normal M1 bifurcation. Normal left M1 and M2 segments of the middle cerebral arteries, with a normal M1 bifurcation. Normal right posterior communicating artery (PCOM). Normal left posterior communicating artery (PCOM). Normal bilateral vertebral arteries. Normal basilar artery with a normal basilar bifurcation. The visualized bilateral superior cerebellar (SCA) arteries are normal. Normal bilateral P1, P2 and visualized P3 segments of the posterior cerebral arteries. There is no demonstrated aneurysm of the [place]. Atherosclerotic calcific plaques in the vertebral arteries. No significant abnormality is seen within the brain. There is evidence of a left sphenoid sinusitis as well as a mild degree of ethmoid sinusitis. AORTIC ARCH: There is atherosclerotic calcific plaque formation of the aortic arch and great vessels arising from the aortic arch, without a hemodynamically significant stenosis. There is a normal origin of the brachiocephalic, left common carotid, and left subclavian arteries. Atherosclerotic calcific plaque seen at the origin of the brachiocephalic artery, left subclavian artery and the left common carotid artery. RIGHT CAROTID ARTERIES: Normal right common carotid artery (CCA). Normal right common carotid bulb. Normal origin of the right internal carotid (ICA) artery without a hemodynamically significant stenosis. Normal visualized cervical portion of the right internal carotid artery. Normal origin of the right external carotid artery (ECA). LEFT CAROTID ARTERIES: Normal left common carotid artery (CCA). Normal left common carotid bulb. Normal origin of the left internal carotid (ICA) artery without a hemodynamically significant stenosis. Normal visualized cervical portion of the left internal carotid artery. Normal origin of the left external carotid artery (ECA). VERTEBRAL ARTERIES: Focal stenotic plaque seen at the origin of the right vertebral artery. Nonstenotic plaque seen in the proximal portion of the left vertebral artery. Scattered calcific plaques in the mid and distal portion of the right vertebral artery. CT/CTA Head AND Neck W/ Contrast IMPRESSION: Scattered calcific plaques in the vertebral artery slightly worse on the right side. Mildly stenotic plaque seen in the cavernous portions of the left and right internal carotid arteries. Left sphenoid and ethmoid sinusitis. Electronically Signed: Armando Cope MD at 15:04 EDT ,
--- NOTE | 2024-04-15 13:53 | EX.ED.DYSGE1 ---
HPI History of Present Illness Chief Complaint: Dizziness Informant: patient and spouse/S.O. Onset/Context/Timing Onset: Weeks Context: Gradual Onset Timing: Intermittent Current Severity: Mild Maximum Severity: Mild Narrative Narrative: 60-year-old male history of A-fib, diabetes, hypertension on Eliquis for his A-fib. Said for the last 2 to 3 weeks says that he has had intermittent headaches with dizziness to the describes as lightheadedness specifically when he bends over. Denies any trouble moving his arms or legs. No trouble with his balance. Or speech. No visual changes. Since target and some left-sided neck discomfort the last 2 to 3 days. Denies any fall or trauma. Was seen at the [facility] emergency department week or so ago and elevated blood sugar at that time. Patient does not believe he had a CAT scan of his head at that time. Prior similar symptoms: Yes Recent Illness/Hospitalization: No PFSH PFSH Medical History Persistent atrial fibrillation Pure hypercholesterolemia Knee pain Severe headache Arthritis Type 2 diabetes mellitus Essential hypertension Fatigue Dyspnea vermin exterminator use of drug Encounter for long-term current use of high risk medication Paroxysmal atrial fibrillation Hypokalemia Renal insufficiency Diabetes mellitus HTN (hypertension) Creatinine elevation Atrial fibrillation T2DM (type 2 diabetes mellitus) Home Medications ?Medication ?Instructions ?Recorded ?Last Taken ?Type sitagliptin phosphate 100 mg tablet 100 mg PO DAILY 11/08/15 11/08/15 History cholecalciferol (vitamin D3) 50 2,000 unit PO QDAY 01/11/18 Unknown History mcg (2,000 unit) tablet pioglitazone 45 mg tablet 45 mg PO QDAY 04/09/18 Unknown History atorvastatin 80 mg tablet 80 mg PO QHS #90 tabs 09/06/18 Unknown Rx metoprolol tartrate 25 mg tablet 12.5 mg PO BID 09/21/20 Unknown History apixaban 5 mg tablet (Eliquis) 5 mg PO BID #60 tabs 05/02/21 Unknown Rx valsartan 320 1 tab PO QDAY #90 tabs 09/20/23 Unknown Rx mg-hydrochlorothiazide 25 mg tablet Allergy/AdvReac Type Severity Reaction Status Date / Time glimepiride Allergy Nausea Verified 04/15/24 13:15 metformin Allergy Other Verified 04/15/24 13:15 Family History Father CAD (coronary artery disease) Myocardial infarction Mother CVA (cerebral vascular accident) CAD (coronary artery disease) Myocardial infarction Brother Afib Emphysema, unspecified Other Hypertension Surgical History History of appendectomy H/O cystoscopy Social History household members: spouse Smoking Status: Never smoker alcohol intake: never substance use type: does not use diet: diabetic caffeine: Yes Type: carbonated beverages Number of servings: 2 and coffee Number of servings: 3 what type of physical activity do you participate in: walking seatbelt use: sometimes do you feel safe at home: Yes ROS ROS ED ROS Narrative Lightheadedness. Review of Systems ROS Unobtainable: Denies due to encephalopathy Constitutional Constitutional ED: Denies chills or fever(s) Eyes Eyes: Denies blurry vision ENT ENT ED: Denies ear pain Cardiovascular Cardiovascular: Denies chest pain Respiratory/Chest Respiratory/Chest: Denies cough or dyspnea Gastrointestinal Gastrointestinal: Denies abdominal pain Genitourinary Genitourinary ED: Denies dysuria or hematuria Musculoskeletal Musculoskeletal: Reports neck pain; Denies arthralgias or back pain Integumentary Denies abscess or Abrasions Neurologic Neurologic: Reports headache(s) Psychiatric Psychiatric: Denies anxiety or depression Endocrine Endocrinology: Denies cold intolerance Hematologic/Lymphatic Hematologic/Lymphatic: Reports none Allergic/Immunologic Allergic/Immunologic ED: Denies mouth swelling, tongue swelling or urticaria EXAM Physical Exam Narrative Exam Narrative: Well-appearing 68-year-old male. Vital signs are stable afebrile. Pulse ox 99% on room air no hypoxia. H EENT exam pupils round react light. His motions are intact. No facial droop. Normal speech. No trauma. Neck nontender. Lungs clear to auscultation. Heart A-fib rate in the 70s.. Chest wall and ribs nontender. Abdomen soft nontender. Back nontender. Moving all 4 extremities. 5/5 wide area network systems administrator strength. Dorsi plantarflexion intact. Neurologically is awake. Alert. Normal speech. No facial droop. Normal wide area network systems administrator strength. Normal rapid hand movements. Fingertip to nose and [id number] within normal limits. NIH 0 lying in bed. He is awake and alert. Answering questions and following commands. Const Vital Signs: 04/15/24 13:15 04/15/24 13:23 04/15/24 13:23 Temperature 97.8 F Temperature Source Temporal Pulse Rate 78 Respiratory Rate 18 Respiratory Effort Normal Non-Labored Normal Non-Labored Blood Pressure 139/87 H Blood Pressure Mean 104 Pulse Ox 99 Oxygen Delivery Method Room Air 04/15/24 13:55 04/15/24 15:15 Temperature Temperature Source Pulse Rate 66 Respiratory Rate 30 H Respiratory Effort Blood Pressure 137/87 H Blood Pressure Mean 103 Pulse Ox 97 Oxygen Delivery Method Room Air Room Air Positive well nourished and well developed; Negative for cachectic, contractures or unkempt General Appearance ED: well developed and NAD; Negative for unkempt, cachectic, contractures, cyanotic, diaphoretic or pallor Nutritional Appearance: Negative for cachectic HEENT Reports moist mucous membranes; Denies dry mucous membranes Negative for trauma or tenderness Mouth ED: No dry mucous membranes Mouth: No dry mucous membranes Eyes PERRL and EOMs intact bilaterally General Eye ED: Negative for pale conjunctiva or scleral icterus Neck no lymphadenopathy, supple and no JVD General: Negative for tenderness Lymph Lymphatic: Negative for other Chest Wall inspection of chest normal and palpation of chest normal Resp normal respiratory effort and clear to auscultation bilaterally Effort and Inspection: Negative for retractions Auscultation: Negative for rales, rhonchi, wheezes or diminished lung sounds Cardio regular rhythm, S1 normal heart sound, S2 normal heart sound and no murmurs Palpation: Negative for palpable S3 or palpable S4 Rate: Negative for bradycardia, tachycardic or other Rhythm: abnormal rhythm irregularly irregular GI normal to inspection, nondistended, normoactive bowel sounds, non-tender, non-distended and no masses Inspection: Negative for abdominal distention Auscultation: normoactive bowel sounds Palpation: soft; Negative for tender or guarding Back/Spine no CVA tenderness General Back: Negative for CVA tenderness Cervical Spine: Negative for cervical spine tenderness Thoracic Spine / Upper Back: Negative for thoracic spinal tenderness or paraspinal muscle tenderness Lumbar Spine / Lower Back: Negative for lumbar spinal tenderness Extremity normal to inspection General Extremety ED: Negative for edema or tenderness General Extremity: Negative for edema Neuro oriented x3 and CN's II-XII intact bilaterally Sensorium / Orientation: alert; Negative for orientation impaired, lethargic or stuporous Motor Exam: strength 5/5 throughout; Negative for general weakness or strength abnormal Psych mental status grossly normal Appearance: Negative for unkempt Attitude: No agitated Mood & Affect: Negative for depressed, anxious or tearful Skin no rashes or lesions noted, no wounds and skin turgor normal General Skin Exam: elasticity normal; Negative for jaundice or pallor Lesions: No lesion noted Rashes: No rashes noted Trauma: Negative for abrasion Wounds: Negative for wounds noted MDM MDM MDM Narrative Medical decision making narrative: 68-year-old male with headache and lightheadedness for the last 2 to 3 weeks. His exam is normal in bed. Undergo a stroke evaluation even though he has a normal neurologic exam at this time. It does not appear to be vertigo. He does not have room spinning. He has no motor abnormalities. Repeat exam patient is doing well at 3:50 PM. Had a lengthy discussion both he and his and his daughter who is an ICU nurse here at the hospital. We do not have a specific cause. At this time. Get him up he walked without any difficulty and no assistance. He was not off balance. He is showing no signs ataxia. I put him through Hallpike maneuvers there is no signs of this being vertigo. He is ears do not show any signs of ear impaction or infection. Repeat neurologic exam remains normal with an NIH of 0. Orthostatic vital signs were done and there is no significant change. His blood pressure is 120s over 70s and 80s. And he had no significant symptoms other than mild dizziness when he stood up that resolved quickly. History & Record Review Discussion w/independent historian: Patient and Significant other Additional record(s) reviewed:: Prior inpatient record and Prior labs Lab Data Attestation: I reviewed the patient's lab results. Lab results narrative: CBC shows white count 13.7. H&H 13 and 38. Platelets 215. Electrolytes show a gap of 8. Normal BUN and creatinine of 18 and 1. Glucose 274. Troponin normal at 5. Chest x-ray unremarkable. Chronic changes. Labs: Laboratory Results - last 24 hr 04/15/24 13:52 WBC 13.7 H RBC 4.49 L Hgb 13.0 Hct 38.5 L MCV 85.7 MCH 29.0 MCHC 33.8 RDW Std Deviation 41.8 RDW Coeff of Kim 13.3 Plt Count 215 MPV 12.0 Immature Gran % (Auto) 0.800 Neut % (Auto) 73.8 H Lymph % (Auto) 15.9 L [place] % (Auto) 6.8 Eos % (Auto) 2.2 Baso % (Auto) 0.5 Absolute Neuts (auto) 10.1 H Absolute Lymphs (auto) 2.18 Nucleated RBC % 0 Sodium 136 Potassium 3.8 Chloride 102 Carbon Dioxide 26.0 Anion Gap 8 BUN 18 Creatinine 1.03 Estim Creat Clear Calc 79.81 Est GFR (MDRD) Af Amer 92 Est GFR (MDRD) Non-Af 76 BUN/Creatinine Ratio 17.5 Glucose 274 H Calcium 9.3 Troponin I High Sens 5 Radiography Chest X-Ray - ED: 1 View, Read by ED Physician, Read by Radiologist, Normal, Heart, Lungs, Mediastinum, Bony Structures, No Acute Disease and Chronic Changes Diagnostic Testing: Clinical Impression(s) from Imaging Studies Head/Neck CTA 04/15/24 13:51 IMPRESSION: Scattered calcific plaques in the vertebral artery slightly worse on the right side. Mildly stenotic plaque seen in the cavernous portions of the left and right internal carotid arteries. Left sphenoid and ethmoid sinusitis. Electronically Signed: Armando Cope MD at 15:04 EDT , Chest X-Ray 04/15/24 14:42 IMPRESSION: No acute abnormality is seen. Electronically Signed: Armando Cope MD at 14:56 EDT , Chest x-ray, portable, single view interpreted by by myself and the radiologist shows no acute abnormality. Rhythm Strip Rhythm Strip: A-fib Rate: 71 Ectopy: None EKG Initial EKG: Attestation: I personally reviewed and interpreted this EKG as follows: Interpretation: No Acute Injury Pattern and Atrial Fibrillation Comments: A-fib rate is 71. No acute signs of NE or ischemia. Discharge Plan Triage Chief Complaint: Dizziness Other Complaint: Chest Pain Weakness ED Provider: Kendall Sol Dx/Rx/DC Orders Clinical Impression: Dizziness, History of diabetes insipidus, History of hypertension, History of atrial fibrillation Instructions: ED Dizziness, Uncertain Cause Prescriptions: No Action cholecalciferol (vitamin D3) 2,000 unit tablet 2,000 unit PO QDAY pioglitazone 45 mg tablet 45 mg PO QDAY atorvastatin 80 mg tablet 80 mg PO QHS Qty: 90 3RF metoprolol tartrate 25 mg tablet 12.5 mg PO BID sitagliptin phosphate 100 MG tablet 100 mg PO DAILY Patient Comments: Diabetes Eliquis 5 mg tablet 5 mg PO BID Qty: 60 11RF valsartan-hydrochlorothiazide 320-25 mg tablet 1 tab PO QDAY Qty: 90 3RF Primary Care Provider: Toby Echeverria Referrals: Toby Echeverria MD [Primary Care Provider] - As soon as possible Activity Restrictions/Additional Instructions: Call and follow-up with her primary care physician. If the symptoms are not improving then follow-up with your primary care physician for possible MRI of your brain. Print Language: Luxembourgish Disposition Disposition: Home, Self Care
[2024-04-15 14:11] LABS: Absolute Lymphocyte Count 2.18 X10^3/uL (0.83-4.51); Absolute Neutrophil Count 10.1 X10^3/uL (2.0-7.7); Basophil# 0.07 X10^3/uL; Basophil% 0.5 % (0-1); Eosinophils% 2.2 % (0-5); Hematocrit 38.5 % (40-54); Lymphocyte # 2.18 X10^3/ul (0.83-4.51); Lymphocyte % 15.9 % (19-41); Mean Corp Hgb Conc 33.8 g/dL (32-36); Mean Corpuscular Volume 85.7 fL (80-94); Monocyte# 0.93 X10^3/uL; Monocyte% 6.8 % (0-10); NRBC Flagged by Analyzer 0 % (0-5); Neutrophil # 10.11 X10^3/uL (2.7-7.7); Neutrophil % 73.8 % (47-70); Platelet Count 215 K/mm3 (150-450); RBC Distribution Width CV 13.3 % (11.6-14.6); RBC Distribution Width SD 41.8 fl (35.1-43.9); Red Blood Count 4.49 M/mm3 (4.6-6.2); White Blood Count 13.7 K/mm3 (4.4-11.0)
[2024-04-15 14:29] LABS: Anion Gap 8 (5-15); BUN 18 mg/dL (7-18); BUN/Creat Ratio 17.5 RATIO (10-20); Calcium,Total 9.3 mg/dL (8.5-10.1); Chloride 102 mmol/L (98-107); Creatinine, Serum 1.03 mg/dL (0.70-1.30); EST Glomerular Filtration Rate 76 mL/min (>60); Est Glom Filt Rate - Afr Amer 92 mL/min (>60); Estimated Creatinine Clearance 79.81 ml/min; Glucose 274 mg/dL (74-106); Potassium 3.8 mmol/L (3.5-5.1); Sodium Level 136 mmol/L (136-145); Troponin-I HS 5 pg/mL (3.0-78.0)
--- NOTE | 2024-04-15 14:42 | RAD_ITS ---
STUDY: X-RAY CHEST REASON FOR EXAM: Male, 68 years old. Chest pain TECHNIQUE: Single AP portable view of the chest. COMPARISON: Comparison is made with prior study dated November 13, 2022. FINDINGS: EKG electrodes are seen. The lungs are clear and expanded. There is no demonstrated pleural abnormality. Normal size heart. Normal mediastinum and opal. Normal visualized pulmonary arteries. There is atherosclerotic tortuosity of the aortic arch and descending thoracic aorta. There are diffuse degenerative changes of the visualized thoracic spine. Normal visualized ribs, clavicles, and shoulders. There is no demonstrated abnormality of the visualized soft tissue structures of the upper abdomen. RAD/Chest 1 View (Portable) IMPRESSION: No acute abnormality is seen. Electronically Signed: Armando Cope MD at 14:56 EDT ,
[2024-04-15 15:15] VITALS: BP 137/87; PULSE 66; RESP 30; O2SAT 97
[2024-04-15 16:01] VITALS: BP 123/73; BP 123/84; BP 126/82; PULSE 69; PULSE 74; PULSE 82
[2024-04-15 16:10] VITALS: BP 123/64; PULSE 71; RESP 18; TEMP 36.6; O2SAT 99
== END 2024-04-15 16:11 | disposition home or self-care (01) ==
PROVIDERS: Emergency Provider Emergency Medicine; PCP Family Medicine; Visit Provider Emergency Medicine
DX: R42 Dizziness and giddiness (principal); I48.91 Unspecified atrial fibrillation; E11.9 Type 2 diabetes mellitus without complications; I10 Essential (primary) hypertension; Z79.01 Long term (current) use of anticoagulants; Z79.899 Other long term (current) drug therapy
CPT/HCPCS: 70496; 70498; 71045; 80048; 84484; 85025; 93005; 99285; Q9967; A4216

== ENCOUNTER → 2024-05-02 | Outpatient (CLI) | payer MEDICARE, BC, SELFPAY ==
--- NOTE | 2024-05-02 15:27 | STRESSREP_ITS ---
Stress Test Report Date: 05/02/2024 Procedure: Exercise tolerance test/imaging study Indications: Chest pain Consent: Per the patient Procedure: The patient exercised on a Harpreet protocol for 4 minutes and 1 second achieving a peak heart rate of 166 bpm (109% predicted maximal heart rate) with a peak blood pressure 158/70 mmHg and a peak MET capacity of 7 METs. The baseline ECG demonstrated atrial fibrillation. The peak exercise ECG demonstrated no significant ischemic changes. EKG during recovery revealed no significant ischemic changes [There were no significant cardiac dysrhythmias pretest, during exercise, or recovery]. The functional capacity was considered normal for age. There was [no complaint of chest discomfort during exercise or recovery]. The examination was discontinued secondary to leg discomfort. Impression: 1. Technically adequate (percent predicted maximal heart rate greater than 85%) exercise tolerance test 2. Stress test is negative for exercise-induced EKG changes of ischemia 3. The test test is negative for exercise-induced chest pain 4. Functional capacity is normal for age 5. Nuclear images pending Myocardial perfusion imaging study: Technique: The patient was injected with 13.7 mCi of technetium 99m Cardiolite and subsequently rest SPECT Cardiolite nuclear imaging was obtained in the horizontal long, vertical long, and short axis views. The patient exercised on a Harpreet protocol. Please see above for details. The patient was injected with 43.2 mCi of technetium 99m Cardiolite and subsequently stress SPECT Cardiolite nuclear imaging was obtained in the horizontal long, vertical long, and short axis views. A gated Cardiolite study at peak stress was obtained. Interpretation: Rest and stress SPECT Cardiolite nuclear imaging status post realignment, normalization, and attenuation correction, demonstrates no evidence of significant ischemia or infarction. The gated Cardiolite study demonstrates no significant regional wall motion abnormalities. The reported LVEF is 70%. Impression: 1. There is no evidence of significant ischemia or infarction. 2. The gated Cardiolite study reports an LVEF of 70%. This note was generated with [employer] software. It may contain incorrect words, spelling, and punctuation that were not noted in checking the note before signing.
== END | disposition home or self-care (01) ==
LOC: CVS 06:01
PROVIDERS: PCP Family Medicine; Referring Provider Physician Assistant Medical; Visit Provider Physician Assistant Medical
DX: R07.9 Chest pain, unspecified (principal); I48.19 Other persistent atrial fibrillation; R42 Dizziness and giddiness; I10 Essential (primary) hypertension
CPT/HCPCS: 78452; 93017; 93225; 93226; A9500; A4216

== ENCOUNTER 2024-05-09 07:00 | Outpatient (RCR) | payer MEDICARE, BC, SELFPAY ==
--- NOTE | 2024-04-25 10:44 | HP.PTEVAL ---
Patient's Visit Information Visit Information Visit Information: TATYANA MCKENNA is a 68 year old M referred to Physical Therapy by Dr. Fili Gonzales MD with a diagnosis of vertigo. Date of Evaluation: 04/25/24 Physical Therapist: Codey Long, WESTLEYT, OCS, CSCS Visit Plan Frequency: 1x/Week Duration: 4-6 Weeks Plan: weekly x 4-6 for 1. positional checks and treats oculomotor as needed(possible hypofucntion), ankle strength if desired. + L roll test today. Subjective Subjective: No spinning, but gets lightheaded and some WILKS.Has heart checked adn that is OK as he saw aerodynamic consultant last week. It has been happening for 3 weeks or a month and started insidiously. 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 Struggled through that day and then went home the next day. ER thought dehydration and high blood sugar. Addresses by main doctor Juwan in [place]. Went home and a couple days later didn't feel better and went then to [facility]. Thought maybe sinus infection and heart doctor checked him out and thought infection in sinus antibiotics which he is taking and they seem to help. Then sent to neuro, Saw [facility] in [place] and he determined vertigo. Overall 50% better from last week.Sleeping good in any position. Lightheadedness is constant, Nothing makes it much worse. No problems looking at phone or focus. Is not working as he does not want to get on a ladder at this point. Activities at home are normal. Will have CT [facility] head. Basic ADLs are I and OK right now. Life normal now outside of work and funny lightheaded feeling. has no neuropathy and noticed foot slap for years on both sides starting on one side. Objective Objective: Ambulates I with good balance today but obvious foot slap B with gait which he says has been there for years without reason. Transfers are I without UE bed and chair. Steps are reciprocal with one rail. cervical aROM WFL and without pain, reflexes patella adn achiilles 2/3 B, sensation LE WNL to gross light touch B. strength in DF is 3 B, eversion and inversion 3+ and PF 5, knee and hip are 4/5 and symmetrical. - R HD and - L HD testing. - R roll test, + L roll test for slight 3 second dizzyness and possible downbeat nystagmus accompanying. Treated with L BBQ roll and lightheadedness diminished as we went. Balance/Special Test Scores Functional Gait Assessment Score: 28 % Disability: 6.6700 CATSIB Score (Max score 120 seconds): 120 Dizziness Score: 18 Goals Goal 1:: lightheadedness abolished 100% Goal Time Frame: 4-6 Weeks Goal 2:: Pt able to go back to work without hesitation Goal Time Frame: 4-6 Weeks Goal 3:: DHI score 4 or better Goal Time Frame: 4-6 Weeks Rehabilitation Potential Physical Therapy Diagnosis: dizzyness, lightheadedness with head movements effecting QOL. Rehabilitation Potential: Fair Anticipated Interventions Patient/Client Instruction: Educate patient on: Condition and Plan of Care For the Purpose of:: To increase tolerance to activity/condition/position Therapeutic Exercise to Include: Strength training Comment: positional and vestibular exercises. For the Purpose of:: To increase tolerance to activity/condition/position Text: Thank you for the opportunity to evaluate your patient. For Medicare and Medicare HMO plans, please review the plan of care and approve it. It will need to be FAXED BACK to us at [phone] for Medicare purposes. For Medicare only, by signing this I certify the plan of care. Please let me know if there are questions or concerns regarding this plan of care. Physician Signature: Date:
--- NOTE | 2024-07-04 07:15 | HP.PTDCNRP_ITS ---
Patient Information Patient Information: TATYANA MCKENNA was seen in my office for initial evaluation on 04/25/24. The following Plan of Care was established for this patient: POC Established Initial Frequency: 1x/Week Initial Duration: 4-6 Weeks Anticipated Interventions Patient/Client Instruction: Educate patient on: Condition and Plan of Care For the Purpose of:: To increase tolerance to activity/condition/position Therapeutic Exercise to Include: Strength training For the Purpose of:: To increase tolerance to activity/condition/position Last Seen Last Seen: This patient was last seen in our office 05/09/24. Pertinent comments regarding their Physical therapy will appear below: Pt seen 3 visits of POC and was 60% better. He did not return for any further visits of POC. It has been almost two months and I will discontinue at this ti me. At this point I will be discontinuing this patient from physical therapy. I would be happy to see this patient again in the future if found appropriate by the physician. Thank you! Codey Long, DPT, OCS, CSCS Balance/Gait/Functional tests Balance/Special Test Scores Functional Gait Assessment Score: 28 % Disability: 6.6700 CATSIB Score (Max score 120 seconds): 120 Dizziness Score: 18
== END 2024-05-09 19:00 | disposition home or self-care (01) ==
LOC: PT 07:00
PROVIDERS: PCP Family Medicine; Referring Provider Psychiatry & Neurology Neurology; Visit Provider Psychiatry & Neurology Neurology
DX: R42 Dizziness and giddiness (principal)
CPT/HCPCS: 97161; 97530

== ENCOUNTER 2024-10-05 23:14 | Emergency (ER) | payer MEDICARE, BC, SELFPAY ==
[2024-10-05 23:18] VITALS: BP 164/104; PULSE 71; RESP 18; TEMP 36.9; O2SAT 98; BMI 27.3
--- NOTE | 2024-10-05 23:18 | ED.VIS.BACK ---
HPI History of Present Illness Chief Complaint: Back [facility] Medical History Persistent atrial fibrillation Pure hypercholesterolemia Knee pain Severe headache Arthritis Type 2 diabetes mellitus Essential hypertension Fatigue Dyspnea senior living use of drug Encounter for long-term current use of high risk medication Paroxysmal atrial fibrillation Hypokalemia Renal insufficiency Diabetes mellitus HTN (hypertension) Creatinine elevation Atrial fibrillation T2DM (type 2 diabetes mellitus) Home Medications ?Medication ?Instructions ?Recorded ?Last Taken ?Type sitagliptin phosphate 100 mg tablet 100 mg PO DAILY 11/08/15 11/08/15 History cholecalciferol (vitamin D3) 50 2,000 unit PO QDAY 01/11/18 Unknown History mcg (2,000 unit) tablet pioglitazone 45 mg tablet 45 mg PO QDAY 04/09/18 Unknown History atorvastatin 80 mg tablet 80 mg PO QHS #90 tabs 09/06/18 Unknown Rx metoprolol tartrate 25 mg tablet 12.5 mg PO BID 09/21/20 Unknown History apixaban 5 mg tablet (Eliquis) 5 mg PO BID #60 tabs 05/02/21 Unknown Rx valsartan 320 1 tab PO QDAY #90 tabs 09/20/23 Unknown Rx mg-hydrochlorothiazide 25 mg tablet alogliptin 25 mg tablet 25 mg PO DAILY 04/18/24 Unknown History Allergy/AdvReac Type Severity Reaction Status Date / Time glimepiride Allergy Nausea Verified 10/05/24 23:18 metformin Allergy Other Verified 10/05/24 23:18 Family History Father CAD (coronary artery disease) Myocardial infarction Mother CVA (cerebral vascular accident) CAD (coronary artery disease) Myocardial infarction Brother Afib Emphysema, unspecified Other Hypertension Surgical History History of appendectomy H/O cystoscopy Social History household members: spouse Smoking Status: Never smoker alcohol intake: never substance use type: does not use diet: diabetic caffeine: Yes Type: carbonated beverages Number of servings: 2 and coffee Number of servings: 3 what type of physical activity do you participate in: walking seatbelt use: sometimes do you feel safe at home: Yes EXAM Physical Exam Const Vital Signs: 10/05/24 23:18 Temperature 98.5 F Temperature Source Oral Pulse Rate 71 Respiratory Rate 18 Blood Pressure 164/104 H Blood Pressure Mean 124 Pulse Ox 98 Oxygen Delivery Method Room Air [facility] [place] Medical decision making narrative: HISTORY OF PRESENT ILLNESS: 68-year-old male presents with back pain. The patient states he slipped and fell on ice at approximately 7 PM. Denies head trauma or loss of consciousness. States lower left back pain. Denies difficulty with bowel or bladder. Denies loss of movement or sensation in the legs. Denies saddle anesthesia. REVIEW OF SYSTEMS: Pertinent positives: Back pain Pertinent negatives: Saddle anesthesia PHYSICAL EXAM: Nursing triage notes reviewed, Vital signs reviewed Primary Survey Airway: Intact Breathing: Bilateral breath sounds Circulation: Palpable bilateral femorals, Palpable bilateral radial, Palpable bilateral DP and Palpable bilateral PT Disability / Spine precautions GCS Score: Eye Openin Verbal Response: 5 Motor Response: 6 Secondary Survey Constitutional: Please see MDM Head: Atraumatic, Midface stable, NO jaw malocclusion, No Cephalohematoma, and No Lacerations noted Eye: Pupils equal round and reactive to light, Extraocular muscles intact and No periorbital ecchymosis or stepoff, no evidence of entrapment ENT: Oropharynx clear, no lacerations, no hemotympanum, no raccoon eyes or rodriguez sign Cervical spine / Neck: No cervical spine bony tenderness, crepitance, or stepoff deformity Trachea midline Lungs: Clear to auscultation, No asymmetric rise and No crepitus, no flail chest Cardiac: Regular rate and rhythm and No murmurs Abdomen: Soft, Nontender and No rebound Pelvis: Pelvis stable to compression : No evidence of genital injury Back: Without midline step-offs deformities, bruising, TTP over left lateral lumbar spine. Neuro: intact sensation L1-S1 dermatomal distributions. Intact 5/5 strength in hip flexion (T12-L3). Knee extension (L2-L4). Ankle dorsiflexion (L4-L5). Ankle plantar flexion (S1). Great toe extension (L5). 2+ patellar and Achilles DTRs. Extremities: NO gross Deformities Psych: Normal affect Nursing triage notes reviewed, Vital signs reviewed MEDICAL DECISION MAKING: Chief Complaint: Back pain External records reviewed: Reviewed prior imaging studies Factors affecting care: Atrial fibrillation on Eliquis, type 2 diabetes, hyperlipidemia, hypertension Social determinants of health: none History obtained from others: none Consults: none MDM Narrative: Patient was initially hemodynamically stable, afebrile and nontoxic-appearing. Primary secondary trauma surveys are concerning for the following differential: I considered the following differential diagnosis: Lumbar spine fracture dislocation, bony contusion I obtained a CT scan of the lumbar spine without contrast and gave oral oxycodone and Tylenol for pain control. ALL IMAGES (IF OBTAINED) HAVE BEEN PERSONALLY REVIEWED AND INTERPRETED BY MYSELF. CT scan of the lumbar spine is negative. Patient was ambulatory in the emergency department. 10 ibuprofen instructions recommended. The patient and/or family, caregivers express understanding. The patient and/or family, caregivers agrees with the plan. Shared decision making: I will have a discussion with the patient and or visitors regarding risk/benefits of further testing or admission. They will be made aware of of the risk/benefits inherent in this decision they will be given the opportunity to voice understanding. Total critical care time today provided was at least 0 [] minutes. This excludes separately billable procedures. Critical care time (if documented) is secondary to the patient having high probability of clinically significant/life threatening deterioration in the patient's condition which required my urgent intervention. Impression: 1. Acute back pain 2. Back contusion Dispo: Discharge home This note was generated with [employer] dictation software. It may contain incorrect words, spelling, and punctuation that were not noted in review of the chart prior to signing. Radiography Diagnostic Testing: Clinical Impression(s) from Imaging Studies Lumbar Spine CT 10/05/24 23:34 IMPRESSION: Lumbar spine without evidence of acute fracture. Neuroforaminal narrowing and central bony spinal canal stenosis. Electronically Signed: Tyree Mckeon MD at 1:43 EST , Discharge Plan Triage Chief Complaint: Back ED Provider: Jose Armendariz Dx/Rx/DC Orders Prescriptions: No Action cholecalciferol (vitamin D3) 2,000 unit tablet 2,000 unit PO QDAY pioglitazone 45 mg tablet 45 mg PO QDAY atorvastatin 80 mg tablet 80 mg PO QHS Qty: 90 3RF metoprolol tartrate 25 mg tablet 12.5 mg PO BID alogliptin 25 mg tablet 25 mg PO DAILY sitagliptin phosphate 100 MG tablet 100 mg PO DAILY Patient Comments: Diabetes Eliquis 5 mg tablet 5 mg PO BID Qty: 60 11RF valsartan-hydrochlorothiazide 320-25 mg tablet 1 tab PO QDAY Qty: 90 3RF Primary Care Provider: Toby Echeverria Referrals: Toby Echeverria MD [Primary Care Provider] - Print Language: Burmese
--- NOTE | 2024-10-05 23:34 | CT_ITS ---
INDICATION: back pain after fall EXAMINATION: CT SPINE - CT Spine Lumbar W/O Contrast Injection COMPARISON: None. A radiation dose optimization technique was used for this scan. RADIATION DOSAGE (If Supplied By Facility): CTDIvol/DLP = ( 14.96 ) / ( 617.89 ) mGy/mGycm Findings: Serial CT axial images through the lumbar spine, with coronal and sagittal reformatted series. BONES: No evidence of lumbar spine fracture or subluxation. No concerning bony lesion or abnormal sclerosis to suggest lesion. DISCS/JOINTS: Moderate to severe left L5-S1 neuroforaminal narrowing. There is at least moderate central bony spinal canal stenosis at the L3-L4 level secondary to posterior disc osteophyte formation. SOFT TISSUES: Colonic diverticulosis without focus of diverticulitis within field of view. CT/Spine Lumbar without Contrast IMPRESSION: Lumbar spine without evidence of acute fracture. Neuroforaminal narrowing and central bony spinal canal stenosis. Electronically Signed: Tyree Mckeon MD at 1:43 EST ,
[2024-10-06] MEDS: oxyCODONE 5 MG Tablet PO (00:04)
[2024-10-06] MEDS: Acetaminophen 500 MG Tablet 1000 MG PO (00:04)
[2024-10-06 02:09] VITALS: BP 158/76; PULSE 82; RESP 18; TEMP 36.7; O2SAT 100
== END 2024-10-06 02:11 | disposition home or self-care (01) ==
PROVIDERS: Emergency Provider Emergency Medicine; PCP Family Medicine; Visit Provider Emergency Medicine
DX: S30.0XXA Contusion of lower back and pelvis, initial encounter (principal); I48.0 Paroxysmal atrial fibrillation; E11.9 Type 2 diabetes mellitus without complications; W00.0XXA Fall on same level due to ice and snow, initial encounter; I10 Essential (primary) hypertension; E78.00 Pure hypercholesterolemia, unspecified; M19.90 Unspecified osteoarthritis, unspecified site; Z79.01 Long term (current) use of anticoagulants; Z79.899 Other long term (current) drug therapy
CPT/HCPCS: 72131; 99284

== ENCOUNTER → 2025-01-16 | Outpatient (CLI) | payer MEDICARE, SELFPAY ==
[2025-01-16 15:52] LABS: Hematocrit 40.7 % (40-54); Hemoglobin 13.9 g/dL (13.0-16.5); Mean Corp Hgb Conc 34.2 g/dL (32-36); Mean Corpuscular Volume 87.7 fL (80-94); Platelet Count 191 K/mm3 (150-450); RBC Distribution Width CV 13.2 % (11.6-14.6); RBC Distribution Width SD 42.6 fl (35.1-43.9); Red Blood Count 4.64 M/mm3 (4.6-6.2); White Blood Count 9.4 K/mm3 (4.4-11.0)
== END | disposition home or self-care (01) ==
LOC: LAB 14:53
PROVIDERS: PCP Family Medicine; Referring Provider Internal Medicine Cardiovascular Disease; Visit Provider Internal Medicine Cardiovascular Disease
DX: I48.0 Paroxysmal atrial fibrillation (principal)
CPT/HCPCS: 36415; 85027